=== PATIENT | female | born 1930 | race Caucasian/White ===

== ENCOUNTER 2018-05-13 15:48 | Inpatient (IN) | payer MEDICARE ==
[~2018-05-13] VITALS: Ht 162.6 cm; Wt 68.5 kg
[~2018-05-13 15:48] MED LIST: BISA-42 PO; BUDE10.2 IH; DILT120C80 PO; FAMO-63 PO; FLUO10CA13 PO; HYDR-2758 PO; LOVA40TA2 PO; MULT1TAB52 PO
[2018-05-13] MEDS ORDERED: ONDANSETRON PF 4 MG/2 ML VIAL. IV ONE (17:30)
[2018-05-13] MEDS ORDERED: MORPHINE SULFATE 4 MG/ML VIAL. IV ONE (17:30)
[2018-05-13 17:39] LABS: BILIRUBIN,URINE NEGATIVE (NEG); CLARITY,URINE CLEAR; COLOR,URINE YELLOW; NITRITE,URINE NEGATIVE (NEG); PROTEIN,URINE NEGATIVE (NEG-TRACE); UROBILINOGEN,URINE 0.2 mg/dL (0.2 mg/dL)
[2018-05-13 17:45] LABS: BACTERIA,URINE 0 /HPF (0-FEW); RBC,URINE RARE /HPF (0-2); SQUAMOUS EPITHELIAL CELL,UR OCC /LPF; WBC,URINE 0 /HPF (0-4)
--- NOTE | 2018-05-13 18:17 | PHYS DOC ---
Past Medical History Past Medical History: A-Fib, Anxiety, Depression, High Cholesterol, Other Additional Past Medical Histor: emphysema Past Surgical History: Hip Replacement, Hysterectomy, Other Additional Past Surgical Histo: wrist, heart ablation, right knee replacement Alcohol Use: None Drug Use: None Adult General Chief Complaint Chief Complaint: BACK PAIN OR INJURY HPI HPI Patient is a 87 year old female who presents to the emergency Department today with complaints of continued back pain after being diagnosed with a compression fracture of T12 at [facility] May [id number]. Patient denies any loss of bowel or bladder control, saddle anesthesia, dysuria, increased urinary frequency, dysuria, numbness, tingling, fever, abdominal pain, or chest pain. She states that she lives at home by herself and that when she stands the pain increases and makes her feel weak. She is afraid of falling because of the pain. Pt is currently taking 2 tablets of hydrocodone 5/325 mg at a time for pain relief. She states that the medication only helps relieve her pain to a 9 out of 10 on the pain scale. She states that the pain is constantly a 10 out of 10 on the pain scale. She has a follow up appointment with her PCP Dr. Jimenez next week on 05/18/18. Review of Systems Review of Systems Constitutional: Denies fever or chills [] Respiratory: Denies shortness of breath [] Cardiovascular: Denies chest pain GI: Denies abdominal pain, saddle anesthesia, loss of bowel control, vomiting, or diarrhea [] : Denies increased frequency, dysuria, or hematuria; reports 3 episodes of loss of bladder control while urinating on 05/02/18 denies any episodes since. [] Musculoskeletal: Denies back pain or joint pain [] Integument: Denies rash or skin lesions [] Neurologic: Denies headache, focal weakness or sensory changes [] All other systems were reviewed and found to be within normal limits, except as documented in this note. Current Medications Current Medications Current Medications Medications (Trade) Dose Ordered Sig/Stuart Start Time Stop Time Status Last Admin Dose Admin Morphine Sulfate (Morphine Sulfate) 4 mg 1X ONCE 05/13/18 17:30 05/13/18 17:34 DC Ondansetron HCl (Zofran) 4 mg 1X ONCE 05/13/18 17:30 05/13/18 17:34 DC Allergies Allergies Allergies Coded Allergies Type Severity Reaction Last Updated Verified phenobarbital Allergy Unknown Itching 03/13/14 No Physical Exam Physical Exam Constitutional: Well developed, well nourished, no acute distress, non-toxic appearance. [] HENT: Normocephalic, atraumatic, bilateral external ears normal, nose normal. [] Eyes: conjunctiva normal, no discharge. [] Cardiovascular:Heart rate regular rhythm, no murmur [] Lungs & Thorax: Bilateral breath sounds clear to auscultation [] Abdomen: Bowel sounds normal, soft, no tenderness, no masses, no pulsatile masses. [] Skin: Warm, dry, no erythema, no rash. [] Back: lower thoracic spine tenderness to palpation Extremities: No tenderness, no cyanosis, no clubbing, ROM intact, no edema. [] Neurologic: Alert and oriented X 3, normal motor function, normal sensory function, no focal deficits noted. [] Psychologic: Affect normal, judgement normal, mood normal. [] Current Patient Data Vital Signs Vital Signs Date Time Temp Pulse Resp B/P (MAP) Pulse Ox O2 Delivery O2 Flow Rate FiO2 05/13/18 17:00 98.4 73 18 165/73 (103) 98 Room Air 98.4 Lab Values Laboratory Tests Test 05/13/18 17:00 Urine Collection Type Void Urine Color Yellow Urine Clarity Clear Urine pH 6.0 Urine Specific [place] 1.015 Urine Protein Negative mg/dL (NEG-TRACE) Urine Glucose (UA) Negative mg/dL (NEG) Urine Ketones (Stick) Negative mg/dL (NEG) Urine Blood Negative (NEG) Urine Nitrite Negative (NEG) Urine Bilirubin Negative (NEG) Urine Urobilinogen Dipstick 0.2 mg/dL (0.2 mg/dL) Urine Leukocyte Esterase Negative (NEG) Urine RBC Rare /HPF (0-2) Urine WBC 0 /HPF (0-4) Urine Squamous Epithelial Cells Occ /LPF Urine Renal Epithelial Cells Occ /LPF Urine Bacteria 0 /HPF (0-FEW) EKG EKG [] Radiology/Procedures Radiology/Procedures [] Course & Med Decision Making Course & Med Decision Making Pertinent Labs and Imaging studies reviewed. (See chart for details) IV, CBC, CMP, UA ordered. Pt given 4 mg of zofran and 4 mg of morphine for relief of pain. Plan is to admit patient for pain control and spinal surgery consult. 1800- report to Sunil ESCOBEDO at this time patient care assumed by Sunil. [] Bernard Disclaimer Bernard Disclaimer This electronic medical record was generated, in whole or in part, using a voice recognition dictation system. Departure Departure Referrals: JOE WIN Jr, MD (PCP) CHLOE MONTENEGRO APRN May 13, 2018 18:17
[2018-05-13 18:46] LABS: BASO # 0.1 x10^3/uL (0.0-0.2); BASO % 1 % (0-3); EOS # 0.3 x10^3/uL (0.0-0.7); EOS % 4 % (0-3); HEMATOCRIT 37.9 % (36.0-47.0); HEMOGLOBIN 13.2 g/dL (12.0-15.5); LYMPH % 27 % (24-48); MEAN CORPUSCULAR HEMOGLOBIN 32 pg (25-35); MEAN CORPUSCULAR HGB CONC 35 g/dL (31-37); MEAN CORPUSCULAR VOLUME 91 fL (79-100); MONO # 0.5 x10^3/uL (0.0-1.1); MONO % 7 % (0-9); NEUT # 4.6 x10^3uL (1.8-7.7); NEUT % 61 % (31-73); PLATELET COUNT 402 x10^3/uL (140-400); RED BLOOD COUNT 4.15 x10^6/uL (3.50-5.40); RED CELL DISTRIBUTION WIDTH 14.6 % (11.5-14.5); WHITE BLOOD COUNT 7.5 x10^3/uL (4.0-11.0)
[2018-05-13 18:58] LABS: CALCIUM 9.1 mg/dL (8.5-10.1); CREATININE 0.9 mg/dL (0.6-1.0); GFR 59.5; POTASSIUM 3.6 mmol/L (3.5-5.1)
[2018-05-13 19:04] LABS: ALBUMIN 3.6 g/dL (3.4-5.0); TOTAL BILIRUBIN 0.2 mg/dL (0.2-1.0); TOTAL PROTEIN 7.1 g/dL (6.4-8.2)
[2018-05-13] MEDS ORDERED: fentaNYL PF VIAL 100 MCG/2 ML VIAL ONE (22:46)
[2018-05-13 23:00] VITALS: BP 148/62
[2018-05-13] MEDS ORDERED: fentaNYL PF VIAL 100 MCG/2 ML VIAL IV ONE (23:00)
[2018-05-14] MEDS ORDERED: MORPHINE SULFATE 4 MG/ML VIAL. IV PRN
[2018-05-14] MEDS: oxyCODONE/APAP 5/325 1 TAB TABLET PO PRN ×4 (00:27→16:43)
[2018-05-14 03:00] VITALS: BP 134/63
[2018-05-14] MEDS: MORPHINE IR 15 MG TABLET PO PRN ×2 (03:19→13:53)
[2018-05-14 07:00] VITALS: BP 126/54
--- NOTE | 2018-05-14 10:17 | PDOC1 ---
History and Physical Date of Admission Date of Admission DATE: 05/14/18 TIME: 10:16 Identification/Chief Complaint Chief Complaint CC diagnosed with a compression fracture of T12 at [facility] May [id number]. Patient denies any loss of bowel or bladder control, saddle anesthesia, dysuria, increased urinary frequency, dysuria, numbness, tingling, fever, abdominal pain, or chest pain. states that she lives at home by herself and that when she stands the pain increases and makes her feel weak, is afraid of falling because of the pain., currently taking 2 tablets of hydrocodone 5/325 mg at a time for pain relief. states that the medication only helps relieve her pain to a 9 out of 10 on the pain scale. She states that the pain is constantly a 10 out of 10 on the pain scale Past Medical History Past Medical History Past Medical History Past Medical History: A-Fib, Anxiety, Depression, High Cholesterol, Other Additional Past Medical Histor: emphysema Past Surgical History: Hip Replacement, Hysterectomy, Other Additional Past Surgical Histo: wrist, heart ablation, right knee replacement Alcohol Use: None Drug Use: None FAMILY HX HYPERLIPIDEMIA ENT: No pertinent hx Renal/: No pertinent hx Past Surgical History Past Surgical History: Hysterectomy, Other Family History Family History: High Cholestrol, Hypertension Social History Smoke: No ALCOHOL: none Drugs: None Current Problem List Problem List Problems Medical Problems: (1) Intractable back pain Status: Acute (2) T12 compression fracture Status: Acute Current Medications Current Medications Current Medications Morphine Sulfate (Morphine Sulfate) 4 mg 1X ONCE IV Last administered on at 18:30; Start 05/13/18 at 17:30; Stop 05/13/18 at 17:34; Status DC Ondansetron HCl (Zofran) 4 mg 1X ONCE IV Last administered on 05/13/18at 18:29 ; Start 05/13/18 at 17:30; Stop 05/13/18 at 17:34; Status DC Fentanyl Citrate (Fentanyl 2ml Vial) 100 mcg STK-MED ONCE .ROUTE ; Start at 22:46; Stop 05/13/18 at 22:48; Status DC Fentanyl Citrate (Fentanyl 2ml Vial) 25 mcg 1X ONCE IV Last administered on at 22:54; Start 05/13/18 at 23:00; Stop 05/13/18 at 23:11; Status DC Oxycodone/ Acetaminophen (Percocet 5/325) 2 tab PRN Q4HRS PRN PO PAIN Last administered on 05/14/18at 05:34; Start 05/14/18 at 00:00 Morphine Sulfate (Morphine Sulfate) 4 mg PRN Q4HRS PRN IV SEVERE PAIN Last administered on 05/14/18at 00:28; Start 05/14/18 at 00:00 Morphine Sulfate (Morphine Ir) 15 mg PRN Q4HRS PRN PO PAIN Last administered on 05/14/18at 03:19; Start 05/14/18 at 00:00 Active Scripts Active Reported Diltiazem 24HR Cd (Diltiazem Hcl) 120 Mg Cap.er.24h 120 Mg PO DAILY Dulcolax (Bisacodyl) 5 Mg Tablet.dr 2 Tab PO BID PRN Pepcid (Famotidine) 20 Mg Tablet 1.5 Tab PO DAILY Hydrocodone-Apap 5-325 (Hydrocodone Bit/Acetaminophen) 1 Each Tablet 1-2 Tab PO Q4-6HRS Prozac (Fluoxetine Hcl) 10 Mg Capsule 10 Mg PO DAILY Symbicort 160-4.5 Mcg Inhaler (Budesonide/Formoterol Fumarate) 10.2 Gm Hfa.aer.ad 10.2 Gm IH DAILY Lovastatin 40 Mg Tablet 40 Mg PO HS Allergies Allergies: Coded Allergies: phenobarbital (Unverified Allergy, Unknown, Itching, 03/13/14) HIVES ROS Review of System 14 PT ROS OTHERWISE NEG General: YES: Fatigue PSYCHOLOGICAL ROS: No: Anxiety, Behavioral Disorder, Concentration difficultie , Decreased libido, Depression, Disorientation, Hallucinations, Hostility, Irritablity, Memory difficulties, Mood Swings, Obsessive thoughts, Physical abuse, Sexual abuse, Sleep disturbances, Suicidal ideation, Other Eyes: No Blurry vision, No Decreased vision, No Double vision, No Dry eyes, No Excessive tearing, No Eye Pain, No Itchy Eyes, No Loss of vision, No Photophobia , No Scotomata, No Uses contacts, No Uses glasses, No Other Hematological and Lymphatic: No: Bleeding Problems, Blood Clots, Blood Transfusions, Brusing, Night Sweats, Pallor, Swollen Lymph Nodes, Other ENDOCRINE: No: Breast Changes, Galactorrhea, Hair Pattern Changes, Hot Flashes , Malaise/lethargy, Mood Swings, Palpitations, Polydipsia/polyuria, Skin Changes , Temperature Intolerance, Unexpected Weight Changes, Other Respiratory: No: Cough, Hemoptysis, Orthopnea, Pleuritic Pain, Shortness of breath, SOB with excertion, Sputum Changes, Stridor, Tachypnea, Wheezing, Other Cardiovascular: No Chest Pain, No Palpitations, No Orthopnea, No Paroxysmal Noc. Dyspnea, No Edema, No Lt Headedness, No Other Musculoskeletal: Yes Gait Disturbance, Yes Joint Stiffness, Yes Pain In: (LOW BACK, MID BACK) Neurological: Yes Gait Disturbance Physical Exam General: Alert, Oriented X3, Cooperative, moderate distress HEENT: Atraumatic, PERRLA, EOMI Lungs: Clear to auscultation Heart: S1S2, RRR Breasts: Not examined Abdomen: Normal bowel sounds, Soft Rectal Exam: not examined PELVIC: Examination not indicated Extremities: No clubbing, No cyanosis Neuro: Normal speech, Cranial nerves 3-12 NL Psych/Mental Status: Mental status NL, Mood NL Vitals Vitals Vital Signs Date Time Temp Pulse Resp B/P (MAP) Pulse Ox O2 Delivery O2 Flow Rate FiO2 05/14/18 08:00 Room Air 05/14/18 07:00 98.7 68 16 126/54 (78) 94 98.7 Labs Labs Laboratory Tests Test 05/13/18 17:00 05/13/18 18:30 Urine Collection Type Void Urine Color Yellow Urine Clarity Clear Urine pH 6.0 Urine Specific [place] 1.015 Urine Protein Negative mg/dL (NEG-TRACE) Urine Glucose (UA) Negative mg/dL (NEG) Urine Ketones (Stick) Negative mg/dL (NEG) Urine Blood Negative (NEG) Urine Nitrite Negative (NEG) Urine Bilirubin Negative (NEG) Urine Urobilinogen Dipstick 0.2 mg/dL (0.2 mg/dL) Urine Leukocyte Esterase Negative (NEG) Urine RBC Rare /HPF (0-2) Urine WBC 0 /HPF (0-4) Urine Squamous Epithelial Cells Occ /LPF Urine Renal Epithelial Cells Occ /LPF Urine Bacteria 0 /HPF (0-FEW) White Blood Count 7.5 x10^3/uL (4.0-11.0) Red Blood Count 4.15 x10^6/uL (3.50-5.40) Hemoglobin 13.2 g/dL (12.0-15.5) Hematocrit 37.9 % (36.0-47.0) Mean Corpuscular Volume 91 fL (79-100) Mean Corpuscular Hemoglobin 32 pg (25-35) Mean Corpuscular Hemoglobin Concent 35 g/dL (31-37) Red Cell Distribution Width 14.6 % (11.5-14.5) Platelet Count 402 x10^3/uL (140-400) Neutrophils (%) (Auto) 61 % (31-73) Lymphocytes (%) (Auto) 27 % (24-48) Monocytes (%) (Auto) 7 % (0-9) Eosinophils (%) (Auto) 4 % (0-3) Basophils (%) (Auto) 1 % (0-3) Neutrophils # (Auto) 4.6 x10^3uL (1.8-7.7) Lymphocytes # (Auto) 2.0 x10^3/uL (1.0-4.8) Monocytes # (Auto) 0.5 x10^3/uL (0.0-1.1) Eosinophils # (Auto) 0.3 x10^3/uL (0.0-0.7) Basophils # (Auto) 0.1 x10^3/uL (0.0-0.2) Sodium Level 134 mmol/L (136-145) Potassium Level 3.6 mmol/L (3.5-5.1) Chloride Level 98 mmol/L (98-107) Carbon Dioxide Level 28 mmol/L (21-32) Anion Gap 8 (6-14) Blood Urea Nitrogen 10 mg/dL (7-20) Creatinine 0.9 mg/dL (0.6-1.0) Estimated GFR (Cockcroft-Gault) 59.5 BUN/Creatinine Ratio 11 (6-20) Glucose Level 96 mg/dL (70-99) Calcium Level 9.1 mg/dL (8.5-10.1) Total Bilirubin 0.2 mg/dL (0.2-1.0) Aspartate Amino Transf (AST/SGOT) 13 U/L (15-37) Alanine Aminotransferase (ALT/SGPT) 17 U/L (14-59) Alkaline Phosphatase 66 U/L (46-116) Total Protein 7.1 g/dL (6.4-8.2) Albumin 3.6 g/dL (3.4-5.0) Albumin/Globulin Ratio 1.0 (1.0-1.7) Laboratory Tests Test 05/13/18 17:00 05/13/18 18:30 Urine Collection Type Void Urine Color Yellow Urine Clarity Clear Urine pH 6.0 Urine Specific [place] 1.015 Urine Protein Negative mg/dL (NEG-TRACE) Urine Glucose (UA) Negative mg/dL (NEG) Urine Ketones (Stick) Negative mg/dL (NEG) Urine Blood Negative (NEG) Urine Nitrite Negative (NEG) Urine Bilirubin Negative (NEG) Urine Urobilinogen Dipstick 0.2 mg/dL (0.2 mg/dL) Urine Leukocyte Esterase Negative (NEG) Urine RBC Rare /HPF (0-2) Urine WBC 0 /HPF (0-4) Urine Squamous Epithelial Cells Occ /LPF Urine Renal Epithelial Cells Occ /LPF Urine Bacteria 0 /HPF (0-FEW) White Blood Count 7.5 x10^3/uL (4.0-11.0) Red Blood Count 4.15 x10^6/uL (3.50-5.40) Hemoglobin 13.2 g/dL (12.0-15.5) Hematocrit 37.9 % (36.0-47.0) Mean Corpuscular Volume 91 fL (79-100) Mean Corpuscular Hemoglobin 32 pg (25-35) Mean Corpuscular Hemoglobin Concent 35 g/dL (31-37) Red Cell Distribution Width 14.6 % (11.5-14.5) Platelet Count 402 x10^3/uL (140-400) Neutrophils (%) (Auto) 61 % (31-73) Lymphocytes (%) (Auto) 27 % (24-48) Monocytes (%) (Auto) 7 % (0-9) Eosinophils (%) (Auto) 4 % (0-3) Basophils (%) (Auto) 1 % (0-3) Neutrophils # (Auto) 4.6 x10^3uL (1.8-7.7) Lymphocytes # (Auto) 2.0 x10^3/uL (1.0-4.8) Monocytes # (Auto) 0.5 x10^3/uL (0.0-1.1) Eosinophils # (Auto) 0.3 x10^3/uL (0.0-0.7) Basophils # (Auto) 0.1 x10^3/uL (0.0-0.2) Sodium Level 134 mmol/L (136-145) Potassium Level 3.6 mmol/L (3.5-5.1) Chloride Level 98 mmol/L (98-107) Carbon Dioxide Level 28 mmol/L (21-32) Anion Gap 8 (6-14) Blood Urea Nitrogen 10 mg/dL (7-20) Creatinine 0.9 mg/dL (0.6-1.0) Estimated GFR (Cockcroft-Gault) 59.5 BUN/Creatinine Ratio 11 (6-20) Glucose Level 96 mg/dL (70-99) Calcium Level 9.1 mg/dL (8.5-10.1) Total Bilirubin 0.2 mg/dL (0.2-1.0) Aspartate Amino Transf (AST/SGOT) 13 U/L (15-37) Alanine Aminotransferase (ALT/SGPT) 17 U/L (14-59) Alkaline Phosphatase 66 U/L (46-116) Total Protein 7.1 g/dL (6.4-8.2) Albumin 3.6 g/dL (3.4-5.0) Albumin/Globulin Ratio 1.0 (1.0-1.7) VTE Prophylaxis Ordered VTE Prophylaxis Devices: Yes VTE Pharmacological Prophylaxi: Yes Assessment/Plan Assessment/Plan IMPRESSION 1. INTRACTABLE BACK PAIN 2. COPD 3, HYPERLIPIDEMIA 4. T10 COMPRESSION FX 5. GAIT INSTABILITY PLAN CONSULT DR MERAZ MRI L/S T/S CON HOME MEDS PT/OT SQ LOVENOX DVT PROPHYLAXIS CAMELIA ROSE MD May 14, 2018 10:17
[2018-05-14 11:00] VITALS: BP 141/68
[2018-05-14] MEDS ORDERED: CALCIUM CARBONATE 500 MG TAB.CHEW PO PRN (14:00)
[2018-05-14] MEDS: ALBUTEROL SULFATE 2.5 MG/3 ML NEBU. NEB SCH ×2 (14:30→20:01)
[2018-05-14 15:00] VITALS: BP 126/50
[2018-05-14] MEDS: ENOXAPARIN 40 MG/0.4 ML SYRINGE. SQ SCH (16:00)
--- NOTE | 2018-05-14 16:35 | RAD ---
MRI Thoracic Spine without contrast History: Back pain Technique: Multiplanar, multi sequential noncontrast MR imaging was performed of the thoracic spine. Contrast: None Comparison: None Findings: There is a recent T12 compression fracture with edema signified by STIR hyperintense and T1 hypointense signal. There is osseous retropulsion superiorly which contributes to overall mild spinal stenosis with a greater degree of left lateral recess stenosis. There is no other edema suggestive of recent compression fracture. There is old mild superior endplate concavity of T6 and T5. There is minimal grade 1 anterior spondylolisthesis at C7-T1 and T1-T2. There is moderate to severe degenerative disc disease greater on the left at T8-9 with associated degenerative endplate change, other variable degenerative disc disease. Thoracic cord caliber is within normal limits without significant focal signal abnormality. Some heterogeneous signal posterior to the thoracic cord is most commonly due to CSF pulsation artifact. There is mild inferior thoracic dextroscoliosis. There is multilevel buckling of the ligamentum flavum. There is a negligible posterior protrusion at T8-T9. Facet degenerative change contributes to mild narrowing of the right T4-T5 neural foramen, likely mild narrowing on the left such as at T7-8 through T9-T10. Impression: 1. There is a recent T12 compression fracture with associated edema. There is osseous retropulsion superiorly which contributes to mild spinal stenosis with a greater degree of left lateral recess stenosis. 2. There is multilevel degenerative disc disease greatest at T8-T9. Electronically signed by: Jimmy Will MD (05/14/2018 4:32 PM) [id number]
[2018-05-14] MEDS: BISACODYL 5 MG TABLET.DR. PO PRN (16:41)
[2018-05-14] MEDS: FAMOTIDINE 20 MG TABLET. PO SCH (16:41)
--- NOTE | 2018-05-14 16:41 | RAD ---
MRI Lumbar Spine without contrast History: Back pain Technique: Multiplanar, multi sequential noncontrast MR imaging was performed of the lumbar spine. Contrast: None Comparison: None Findings: As described for thoracic spine MRI performed at the same time, there is recent T12 compression fracture with osseous retropulsion superiorly contributing to mild spinal stenosis. There is no edema suggestive of recent lumbar spine compression fracture. There is negligible anterior spondylolisthesis at L4-5 and minimal posterior subluxation L2 relative to L3 and L1 relative to L2, also negligible anterior spondylolisthesis at T12-L1. Conus terminates at the superior aspect of L2. There is more advanced degenerative disc disease at L2-3 with associated degenerative endplate change, also fairly severe narrowing of the L5-S1 intervertebral disc space although likely in part on a developmental basis. There is mild to moderate degenerative disc disease at L4-5 and L1-2. There is mild lumbar levoscoliosis. L1-L2: There is minimal disc osteophyte complex. Spinal canal and neural foramina are adequate. There is minimal buckling of the ligamentum flavum. L2-L3: There is minimal disc osteophyte complex. Spinal canal is adequate. Neural foramina are adequate. There is mild facet degenerative change and buckling of the ligamentum flavum. L3-L4: There is mild buckling of the ligamentum flavum. There is negligible disc osteophyte complex. Spinal canal is adequate. Neural foramina are overall adequate. L4-L5: There is mild buckling of the ligamentum flavum and facet degenerative change. There is negligible bulge. Neural foramina and spinal canal are overall adequate. L5-S1: There is minimal facet degenerative change. Spinal canal is adequate. There is minimal disc osteophyte complex in the inferior left neural foramen. Neural foramina are overall adequate. Impression: 1. As described for thoracic spine exam, there is recent T12 compression fracture with osseous retropulsion superiorly contributing to mild spinal stenosis. There is no evidence of recent lumbar spine compression fracture. 2. There is more advanced degenerative disc disease L2-3, to lesser degree at other levels. There is multilevel mild abnormal alignment as stated, multilevel facet degenerative change. There is no significant lumbar spinal stenosis or neural foramina compromise. Electronically signed by: Jimmy Will MD (05/14/2018 4:37 PM) [email or web address]
[2018-05-14] MEDS: FLUoxetine HCL 10 MG CAPSULE PO SCH (16:42)
[2018-05-14 19:30] VITALS: BP 112/59
[2018-05-14] MEDS: BUDESONIDE 0.5 MG/2 ML NEBU. NEB SCH (20:01)
[2018-05-14] MEDS: ATORVASTATIN CALCIUM 10 MG TABLET. PO SCH (20:10)
--- NOTE | 2018-05-14 21:26 | CONS ---
DATE OF CONSULTATION: 05/14/2018 ATTENDING PHYSICIAN: Heather Waddell M.D. REQUESTING PHYSICIAN: The patient was seen at the request of Dr. Pineda for rehab evaluation. HISTORY OF PRESENT ILLNESS: This is an 87-year-old right-handed female, a patient of Dr. Lavelle Arriaga. The patient had right total knee arthroplasty done at [facility] about 3 weeks ago. She has been taking care of herself. She lives alone. The patient started having some back pain, was evaluated at [facility] on 05/04/2018, was told that she had a T4 vertebral body compression fracture. She was discharged to home with hydrocodone. She felt it is too strong. The patient admits continued back pain. The patient was admitted for further evaluation and treatment through the Emergency Room. PAST MEDICAL HISTORY: The patient with known atrial fibrillation, anxiety, depression, hypercholesterolemia, emphysema, status post hip replacement, hysterectomy, wrist surgery, heart ablation and right total knee arthroplasty about 3 weeks ago. FAMILY HISTORY: Hyperlipidemia. ALLERGIES: She is known allergic to PHENOBARBITAL. The patient denies any radiation of pain to the extremities or any trouble with her bladder control, but she admits constipation. PHYSICAL EXAMINATION: Today revealed an elderly female. She is alert, oriented to time, place, person and circumstance and follows commands appropriately, moves all 4 extremities voluntarily where she had 4+/5 grade muscle strength. Deep tendon reflexes are decreased overall with absent ankle jerks. She had equal perception of touch and pinprick sensation bilaterally. She had tenderness to palpation over lower thoracic spine and adjoining paraspinal muscles, more so on the left side. Straight leg raising test is negative bilaterally. She is not using proper body mechanics during mobility, but remains independent with her mobility and she had healed right knee postoperative scar. She had a crepitus on range of motion of left knee joint with mild knee joint effusion. She had pain free range of motion on both hip joints. She requires some supervision with transfers and with abdominal binder as thoracolumbar support. She got up and walked using a roller walker without much discomfort. 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 The patient with known atrial fibrillation, anxiety, depression, hypercholesterolemia, emphysema, status post heart ablation. RECOMMENDATIONS: Agree with the plan for physical therapy and occupational therapy to work with her in proper body mechanics to consider T12 kyphoplasty if the pain is really interfering with her mobility. At the present time, she is not having that much significant discomfort. Dr. Pineda, I appreciate asking me to participate in the care of this interesting patient. I will be glad to follow her with you as needed for her rehabilitation. JAMAR MERAZ MD DR: LARRY/romana JOB#: [id number] / [id number]
[2018-05-14 23:18] VITALS: BP 134/69
[2018-05-15] VITALS (15 sets, daily range): BP systolic 101–144; BP diastolic 44–74
[2018-05-15] MEDS: ALBUTEROL SULFATE 2.5 MG/3 ML NEBU. NEB SCH ×4 (01:31→19:51)
[2018-05-15] MEDS: oxyCODONE/APAP 5/325 1 TAB TABLET PO PRN ×5 (03:12→20:49)
[2018-05-15 04:53] LABS: BASO % 1 % (0-3); EOS # 0.3 x10^3/uL (0.0-0.7); EOS % 4 % (0-3); HEMATOCRIT 34.2 % (36.0-47.0); HEMOGLOBIN 11.8 g/dL (12.0-15.5); LYMPH # 1.8 x10^3/uL (1.0-4.8); LYMPH % 29 % (24-48); MEAN CORPUSCULAR HEMOGLOBIN 32 pg (25-35); MEAN CORPUSCULAR HGB CONC 35 g/dL (31-37); MEAN CORPUSCULAR VOLUME 92 fL (79-100); MONO # 0.5 x10^3/uL (0.0-1.1); MONO % 9 % (0-9); NEUT # 3.6 x10^3uL (1.8-7.7); NEUT % 58 % (31-73); PLATELET COUNT 318 x10^3/uL (140-400); RED BLOOD COUNT 3.72 x10^6/uL (3.50-5.40); RED CELL DISTRIBUTION WIDTH 14.7 % (11.5-14.5); WHITE BLOOD COUNT 6.2 x10^3/uL (4.0-11.0)
[2018-05-15 05:49] LABS: CALCIUM 8.6 mg/dL (8.5-10.1); CREATININE 0.9 mg/dL (0.6-1.0); GFR 59.5; POTASSIUM 4.2 mmol/L (3.5-5.1)
[2018-05-15] MEDS: BUDESONIDE 0.5 MG/2 ML NEBU. NEB SCH ×2 (07:08→19:52)
[2018-05-15] MEDS: FAMOTIDINE 20 MG TABLET. PO SCH (09:00)
[2018-05-15] MEDS ORDERED: NON FORMULARY ITEM (Budesonide/Formoterol Fumarate (Symbicort 160-4.5 Mcg Inhaler) 10.2 GM IH SCH (09:00)
[2018-05-15] MEDS: FLUoxetine HCL 10 MG CAPSULE PO SCH (09:00)
[2018-05-15] MEDS ORDERED: oxyCODONE/APAP 5/325 1 TAB TABLET PO PRN (12:00)
[2018-05-15] MEDS ORDERED: LACTULOSE 20 GM/30 ML SOLUTION. PO PRN (12:00)
[2018-05-15] MEDS ORDERED: MAGNESIUM HYDROXIDE 2,400 MG/30 ML ORAL.SUSP. PO PRN (12:00)
--- NOTE | 2018-05-15 13:09 | PDOC ---
PROGRESS NOTES Subjective Subjective She admits continued low back pain. Objective Objective Vital Signs Date Time Temp Pulse Resp B/P (MAP) Pulse Ox O2 Delivery O2 Flow Rate FiO2 05/15/18 11:00 97.7 75 16 120/54 (76) 98 Room Air 97.7 Intake and Output 05/15/18 07:00 Intake Total 1620 ml Balance 1620 ml Intake Oral 1620 ml # Voids 8 Physical Exam Physical Exam She is sitting in bedside chair and does not seem to be in any significant distress. Assessment Assessment Problems Medical Problems: (1) Intractable back pain Status: Acute (2) T12 compression fracture Status: Acute Plan Plan of Care To proceed with T12 kyphoplasty and home with home health follow up when medically stable. Comment Review of Relevant I have reviewed the following items jocelyn (where applicable) has been applied. Labs Laboratory Tests Test 05/13/18 17:00 05/13/18 18:30 05/15/18 04:15 Urine Collection Type Void Urine Color Yellow Urine Clarity Clear Urine pH 6.0 Urine Specific [place] 1.015 Urine Protein Negative mg/dL (NEG-TRACE) Urine Glucose (UA) Negative mg/dL (NEG) Urine Ketones (Stick) Negative mg/dL (NEG) Urine Blood Negative (NEG) Urine Nitrite Negative (NEG) Urine Bilirubin Negative (NEG) Urine Urobilinogen Dipstick 0.2 mg/dL (0.2 mg/dL) Urine Leukocyte Esterase Negative (NEG) Urine RBC Rare /HPF (0-2) Urine WBC 0 /HPF (0-4) Urine Squamous Epithelial Cells Occ /LPF Urine Renal Epithelial Cells Occ /LPF Urine Bacteria 0 /HPF (0-FEW) White Blood Count 7.5 x10^3/uL (4.0-11.0) 6.2 x10^3/uL (4.0-11.0) Red Blood Count 4.15 x10^6/uL (3.50-5.40) 3.72 x10^6/uL (3.50-5.40) Hemoglobin 13.2 g/dL (12.0-15.5) 11.8 g/dL (12.0-15.5) Hematocrit 37.9 % (36.0-47.0) 34.2 % (36.0-47.0) Mean Corpuscular Volume 91 fL (79-100) 92 fL (79-100) Mean Corpuscular Hemoglobin 32 pg (25-35) 32 pg (25-35) Mean Corpuscular Hemoglobin Concent 35 g/dL (31-37) 35 g/dL (31-37) Red Cell Distribution Width 14.6 % (11.5-14.5) 14.7 % (11.5-14.5) Platelet Count 402 x10^3/uL (140-400) 318 x10^3/uL (140-400) Neutrophils (%) (Auto) 61 % (31-73) 58 % (31-73) Lymphocytes (%) (Auto) 27 % (24-48) 29 % (24-48) Monocytes (%) (Auto) 7 % (0-9) 9 % (0-9) Eosinophils (%) (Auto) 4 % (0-3) 4 % (0-3) Basophils (%) (Auto) 1 % (0-3) 1 % (0-3) Neutrophils # (Auto) 4.6 x10^3uL (1.8-7.7) 3.6 x10^3uL (1.8-7.7) Lymphocytes # (Auto) 2.0 x10^3/uL (1.0-4.8) 1.8 x10^3/uL (1.0-4.8) Monocytes # (Auto) 0.5 x10^3/uL (0.0-1.1) 0.5 x10^3/uL (0.0-1.1) Eosinophils # (Auto) 0.3 x10^3/uL (0.0-0.7) 0.3 x10^3/uL (0.0-0.7) Basophils # (Auto) 0.1 x10^3/uL (0.0-0.2) 0.0 x10^3/uL (0.0-0.2) Sodium Level 134 mmol/L (136-145) 139 mmol/L (136-145) Potassium Level 3.6 mmol/L (3.5-5.1) 4.2 mmol/L (3.5-5.1) Chloride Level 98 mmol/L (98-107) 102 mmol/L (98-107) Carbon Dioxide Level 28 mmol/L (21-32) 29 mmol/L (21-32) Anion Gap 8 (6-14) 8 (6-14) Blood Urea Nitrogen 10 mg/dL (7-20) 11 mg/dL (7-20) Creatinine 0.9 mg/dL (0.6-1.0) 0.9 mg/dL (0.6-1.0) Estimated GFR (Cockcroft-Gault) 59.5 59.5 BUN/Creatinine Ratio 11 (6-20) Glucose Level 96 mg/dL (70-99) 99 mg/dL (70-99) Calcium Level 9.1 mg/dL (8.5-10.1) 8.6 mg/dL (8.5-10.1) Total Bilirubin 0.2 mg/dL (0.2-1.0) Aspartate Amino Transf (AST/SGOT) 13 U/L (15-37) Alanine Aminotransferase (ALT/SGPT) 17 U/L (14-59) Alkaline Phosphatase 66 U/L (46-116) Total Protein 7.1 g/dL (6.4-8.2) Albumin 3.6 g/dL (3.4-5.0) Albumin/Globulin Ratio 1.0 (1.0-1.7) Laboratory Tests Test 05/15/18 04:15 White Blood Count 6.2 x10^3/uL (4.0-11.0) Red Blood Count 3.72 x10^6/uL (3.50-5.40) Hemoglobin 11.8 g/dL (12.0-15.5) Hematocrit 34.2 % (36.0-47.0) Mean Corpuscular Volume 92 fL (79-100) Mean Corpuscular Hemoglobin 32 pg (25-35) Mean Corpuscular Hemoglobin Concent 35 g/dL (31-37) Red Cell Distribution Width 14.7 % (11.5-14.5) Platelet Count 318 x10^3/uL (140-400) Neutrophils (%) (Auto) 58 % (31-73) Lymphocytes (%) (Auto) 29 % (24-48) Monocytes (%) (Auto) 9 % (0-9) Eosinophils (%) (Auto) 4 % (0-3) Basophils (%) (Auto) 1 % (0-3) Neutrophils # (Auto) 3.6 x10^3uL (1.8-7.7) Lymphocytes # (Auto) 1.8 x10^3/uL (1.0-4.8) Monocytes # (Auto) 0.5 x10^3/uL (0.0-1.1) Eosinophils # (Auto) 0.3 x10^3/uL (0.0-0.7) Basophils # (Auto) 0.0 x10^3/uL (0.0-0.2) Sodium Level 139 mmol/L (136-145) Potassium Level 4.2 mmol/L (3.5-5.1) Chloride Level 102 mmol/L (98-107) Carbon Dioxide Level 29 mmol/L (21-32) Anion Gap 8 (6-14) Blood Urea Nitrogen 11 mg/dL (7-20) Creatinine 0.9 mg/dL (0.6-1.0) Estimated GFR (Cockcroft-Gault) 59.5 Glucose Level 99 mg/dL (70-99) Calcium Level 8.6 mg/dL (8.5-10.1) Medications Current Medications Morphine Sulfate (Morphine Sulfate) 4 mg 1X ONCE IV Last administered on at 18:30; Start 05/13/18 at 17:30; Stop 05/13/18 at 17:34; Status DC Ondansetron HCl (Zofran) 4 mg 1X ONCE IV Last administered on 05/13/18at 18:29 ; Start 05/13/18 at 17:30; Stop 05/13/18 at 17:34; Status DC Fentanyl Citrate (Fentanyl 2ml Vial) 100 mcg [facility]-MED ONCE .ROUTE ; Start at 22:46; Stop 05/13/18 at 22:48; Status DC Fentanyl Citrate (Fentanyl 2ml Vial) 25 mcg 1X ONCE IV Last administered on at 22:54; Start 05/13/18 at 23:00; Stop 05/13/18 at 23:11; Status DC Oxycodone/ Acetaminophen (Percocet 5/325) 2 tab PRN Q4HRS PRN PO MODERATE PAIN Last administered on 05/15/18at 07:57; Start 05/14/18 at 00:00 Morphine Sulfate (Morphine Sulfate) 4 mg PRN Q4HRS PRN IV SEVERE PAIN Last administered on 05/14/18at 00:28; Start 05/14/18 at 00:00 Morphine Sulfate (Morphine Ir) 15 mg PRN Q4HRS PRN PO SEVERE PAIN Last administered on 05/14/18at 13:53; Start 05/14/18 at 00:00 Calcium Carbonate/ Glycine (Tums) 500 mg PRN AFTMEALHC PRN PO INDIGESTION; Start 05/14/18 at 14:00 Bisacodyl (Dulcolax Tab) 10 mg PRN BID PRN PO CONSTIPATION Last administered on 05/14/18at 16:41; Start 05/14/18 at 14:15 Diltiazem HCl (Cardizem 24hr Cd) 120 mg DAILY PO Last administered on at 16:42; Start 05/14/18 at 15:00 Famotidine (Pepcid) 30 mg DAILY PO Last administered on 05/14/18at 16:41; Start 05/14/18 at 15:00 Fluoxetine HCl (PROzac) 10 mg DAILY PO Last administered on 05/14/18at 16:42; Start 05/14/18 at 15:00 Non-Formulary Medication (Budesonide/ Formoterol Fumarate (Symbicort 160-4.5 Mcg Inhaler)) 10.2 gm DAILY IH ; Start 05/15/18 at 09:00; Status UNV Atorvastatin Calcium (Lipitor) 10 mg QHS PO ; Start 05/14/18 at 21:00 Albuterol Sulfate (Ventolin Neb Soln) 2.5 mg Q6HRS NEB Last administered on at 07:07; Start 05/14/18 at 14:30 Budesonide (Pulmicort) 0.5 mg RTBID NEB Last administered on 05/15/18at 07:08; Start 05/14/18 at 20:00 Enoxaparin Sodium (Lovenox 40mg Syringe) 40 mg Q24H SQ ; Start 05/14/18 at 16:00 Senna/Docusate Sodium (Senna Plus) 1 tab BID PO ; Start 05/15/18 at 21:00 Docusate Sodium (Colace) 100 mg BID PO ; Start 05/15/18 at 21:00 Magnesium Hydroxide (Milk Of Magnesia) 2,400 mg PRN Q12HR PRN PO CONSTIPATION; Start 05/15/18 at 12:00 Lactulose (Lactulose) 20 gm PRN Q12HR PRN PO CONSTIPATION; Start 05/15/18 at 12 :00 Oxycodone/ Acetaminophen (Percocet 5/325) 1 tab PRN Q4HRS PRN PO PAIN; Start at 12:00 Active Scripts Active Reported Dulcolax (Bisacodyl) 5 Mg Tablet.dr 2 Tab PO BID PRN Pepcid (Famotidine) 20 Mg Tablet 1.5 Tab PO DAILY Hydrocodone-Apap 5-325 (Hydrocodone Bit/Acetaminophen) 1 Each Tablet 1-2 Tab PO Q4-6HRS Prozac (Fluoxetine Hcl) 10 Mg Capsule 10 Mg PO DAILY Symbicort 160-4.5 Mcg Inhaler (Budesonide/Formoterol Fumarate) 10.2 Gm Hfa.aer.ad 10.2 Gm IH DAILY Vitals/I & O Vital Sign - Last 24 Hours 05/14/18 05/14/18 05/14/18 05/14/18 13:53 14:53 15:00 16:42 Temp 98.2 98.2 Pulse 79 74 Resp 16 B/P (MAP) 126/50 (75) 141/68 Pulse Ox 93 O2 Delivery Room Air Room Air Room Air 05/14/18 05/14/18 05/14/18 05/14/18 16:43 19:30 20:00 20:01 Temp 97.6 97.6 Pulse 76 Resp 18 B/P (MAP) 112/59 (76) Pulse Ox 96 94 O2 Delivery Room Air Room Air Room Air Room Air 05/14/18 05/15/18 05/15/18 05/15/18 23:18 01:29 03:12 03:22 Temp 97.9 98.2 97.9 98.2 Pulse 73 69 Resp 18 18 B/P (MAP) 134/69 (90) 129/58 (81) Pulse Ox 97 93 O2 Delivery Room Air Room Air Room Air Room Air 05/15/18 05/15/18 05/15/18 05/15/18 07:00 07:08 07:50 07:57 Temp 97.5 97.5 Pulse 83 Resp 16 B/P (MAP) 129/52 (77) Pulse Ox 95 89 89 O2 Delivery Room Air Room Air Room Air Room Air 05/15/18 05/15/18 09:00 11:00 Temp 97.7 97.7 Pulse 75 Resp 16 B/P (MAP) 120/54 (76) Pulse Ox 89 98 O2 Delivery Room Air Room Air Intake and Output 05/14/18 05/14/18 05/15/18 15:00 23:00 07:00 Intake Total 180 ml 1200 ml 240 ml Balance 180 ml 1200 ml 240 ml JAMAR MERAZ MD May 15, 2018 13:09
[2018-05-15] MEDS ORDERED: fentaNYL PF VIAL 100 MCG/2 ML VIAL ONE (14:02)
[2018-05-15] MEDS ORDERED: MIDAZOLAM HCL/PF 2 MG/2 ML VIAL. ONE (14:02)
[2018-05-15] MEDS ORDERED: LIDOCAINE WITH 8.4% SOD BICARB 3 ML DISP.SYRIN. ONE ×2 (14:10→14:59)
[2018-05-15] MEDS ORDERED: IOHEXOL 240 MG/ML 50ML VIAL. ONE (14:11)
--- NOTE | 2018-05-15 14:40 | PDOC ---
PROGRESS NOTES Chief Complaint Chief Complaint lower back pain with compressive t12 fx pafib anxiety depression. HLD constipation copd stable plan: fu with Dr. Valdez may need kypho add percocet for pain control add stool softner History of Present Illness History of Present Illness can walk, but severe lower back pain, + constipation, no incontinence was in [facility] before for the lower back pain, no intervention Vitals Vitals Vital Signs Date Time Temp Pulse Resp B/P (MAP) Pulse Ox O2 Delivery O2 Flow Rate FiO2 05/15/18 14:01 98 Room Air 05/15/18 11:00 97.7 75 16 120/54 (76) 97.7 Physical Exam Physical Exam lower back tenderness General: Alert, Oriented X3, Cooperative, moderate distress Heart: Regular rate, Normal S1 Lungs: Clear Abdomen: Normal bowel sounds, Soft Extremities: No clubbing, No cyanosis Labs LABS Laboratory Tests Test 05/15/18 04:15 05/15/18 13:15 White Blood Count 6.2 x10^3/uL (4.0-11.0) Red Blood Count 3.72 x10^6/uL (3.50-5.40) Hemoglobin 11.8 g/dL (12.0-15.5) Hematocrit 34.2 % (36.0-47.0) Mean Corpuscular Volume 92 fL (79-100) Mean Corpuscular Hemoglobin 32 pg (25-35) Mean Corpuscular Hemoglobin Concent 35 g/dL (31-37) Red Cell Distribution Width 14.7 % (11.5-14.5) Platelet Count 318 x10^3/uL (140-400) Neutrophils (%) (Auto) 58 % (31-73) Lymphocytes (%) (Auto) 29 % (24-48) Monocytes (%) (Auto) 9 % (0-9) Eosinophils (%) (Auto) 4 % (0-3) Basophils (%) (Auto) 1 % (0-3) Neutrophils # (Auto) 3.6 x10^3uL (1.8-7.7) Lymphocytes # (Auto) 1.8 x10^3/uL (1.0-4.8) Monocytes # (Auto) 0.5 x10^3/uL (0.0-1.1) Eosinophils # (Auto) 0.3 x10^3/uL (0.0-0.7) Basophils # (Auto) 0.0 x10^3/uL (0.0-0.2) Sodium Level 139 mmol/L (136-145) Potassium Level 4.2 mmol/L (3.5-5.1) Chloride Level 102 mmol/L (98-107) Carbon Dioxide Level 29 mmol/L (21-32) Anion Gap 8 (6-14) Blood Urea Nitrogen 11 mg/dL (7-20) Creatinine 0.9 mg/dL (0.6-1.0) Estimated GFR (Cockcroft-Gault) 59.5 Glucose Level 99 mg/dL (70-99) Calcium Level 8.6 mg/dL (8.5-10.1) Prothrombin Time 13.0 SEC (11.7-14.0) Prothromb Time International Ratio 1.0 (0.8-1.1) Assessment and Plan Assessmemt and Plan Problems Medical Problems: (1) Intractable back pain Status: Acute (2) T12 compression fracture Status: Acute Comment Review of Relevant I have reviewed the following items jocelyn (where applicable) has been applied. Labs Laboratory Tests Test 05/13/18 17:00 05/13/18 18:30 05/15/18 04:15 05/15/18 13:15 Urine Collection Type Void Urine Color Yellow Urine Clarity Clear Urine pH 6.0 Urine Specific [place] 1.015 Urine Protein Negative mg/dL (NEG-TRACE) Urine Glucose (UA) Negative mg/dL (NEG) Urine Ketones (Stick) Negative mg/dL (NEG) Urine Blood Negative (NEG) Urine Nitrite Negative (NEG) Urine Bilirubin Negative (NEG) Urine Urobilinogen Dipstick 0.2 mg/dL (0.2 mg/dL) Urine Leukocyte Esterase Negative (NEG) Urine RBC Rare /HPF (0-2) Urine WBC 0 /HPF (0-4) Urine Squamous Epithelial Cells Occ /LPF Urine Renal Epithelial Cells Occ /LPF Urine Bacteria 0 /HPF (0-FEW) White Blood Count 7.5 x10^3/uL (4.0-11.0) 6.2 x10^3/uL (4.0-11.0) Red Blood Count 4.15 x10^6/uL (3.50-5.40) 3.72 x10^6/uL (3.50-5.40) Hemoglobin 13.2 g/dL (12.0-15.5) 11.8 g/dL (12.0-15.5) Hematocrit 37.9 % (36.0-47.0) 34.2 % (36.0-47.0) Mean Corpuscular Volume 91 fL (79-100) 92 fL (79-100) Mean Corpuscular Hemoglobin 32 pg (25-35) 32 pg (25-35) Mean Corpuscular Hemoglobin Concent 35 g/dL (31-37) 35 g/dL (31-37) Red Cell Distribution Width 14.6 % (11.5-14.5) 14.7 % (11.5-14.5) Platelet Count 402 x10^3/uL (140-400) 318 x10^3/uL (140-400) Neutrophils (%) (Auto) 61 % (31-73) 58 % (31-73) Lymphocytes (%) (Auto) 27 % (24-48) 29 % (24-48) Monocytes (%) (Auto) 7 % (0-9) 9 % (0-9) Eosinophils (%) (Auto) 4 % (0-3) 4 % (0-3) Basophils (%) (Auto) 1 % (0-3) 1 % (0-3) Neutrophils # (Auto) 4.6 x10^3uL (1.8-7.7) 3.6 x10^3uL (1.8-7.7) Lymphocytes # (Auto) 2.0 x10^3/uL (1.0-4.8) 1.8 x10^3/uL (1.0-4.8) Monocytes # (Auto) 0.5 x10^3/uL (0.0-1.1) 0.5 x10^3/uL (0.0-1.1) Eosinophils # (Auto) 0.3 x10^3/uL (0.0-0.7) 0.3 x10^3/uL (0.0-0.7) Basophils # (Auto) 0.1 x10^3/uL (0.0-0.2) 0.0 x10^3/uL (0.0-0.2) Sodium Level 134 mmol/L (136-145) 139 mmol/L (136-145) Potassium Level 3.6 mmol/L (3.5-5.1) 4.2 mmol/L (3.5-5.1) Chloride Level 98 mmol/L (98-107) 102 mmol/L (98-107) Carbon Dioxide Level 28 mmol/L (21-32) 29 mmol/L (21-32) Anion Gap 8 (6-14) 8 (6-14) Blood Urea Nitrogen 10 mg/dL (7-20) 11 mg/dL (7-20) Creatinine 0.9 mg/dL (0.6-1.0) 0.9 mg/dL (0.6-1.0) Estimated GFR (Cockcroft-Gault) 59.5 59.5 BUN/Creatinine Ratio 11 (6-20) Glucose Level 96 mg/dL (70-99) 99 mg/dL (70-99) Calcium Level 9.1 mg/dL (8.5-10.1) 8.6 mg/dL (8.5-10.1) Total Bilirubin 0.2 mg/dL (0.2-1.0) Aspartate Amino Transf (AST/SGOT) 13 U/L (15-37) Alanine Aminotransferase (ALT/SGPT) 17 U/L (14-59) Alkaline Phosphatase 66 U/L (46-116) Total Protein 7.1 g/dL (6.4-8.2) Albumin 3.6 g/dL (3.4-5.0) Albumin/Globulin Ratio 1.0 (1.0-1.7) Prothrombin Time 13.0 SEC (11.7-14.0) Prothromb Time International Ratio 1.0 (0.8-1.1) Laboratory Tests Test 05/15/18 04:15 05/15/18 13:15 White Blood Count 6.2 x10^3/uL (4.0-11.0) Red Blood Count 3.72 x10^6/uL (3.50-5.40) Hemoglobin 11.8 g/dL (12.0-15.5) Hematocrit 34.2 % (36.0-47.0) Mean Corpuscular Volume 92 fL (79-100) Mean Corpuscular Hemoglobin 32 pg (25-35) Mean Corpuscular Hemoglobin Concent 35 g/dL (31-37) Red Cell Distribution Width 14.7 % (11.5-14.5) Platelet Count 318 x10^3/uL (140-400) Neutrophils (%) (Auto) 58 % (31-73) Lymphocytes (%) (Auto) 29 % (24-48) Monocytes (%) (Auto) 9 % (0-9) Eosinophils (%) (Auto) 4 % (0-3) Basophils (%) (Auto) 1 % (0-3) Neutrophils # (Auto) 3.6 x10^3uL (1.8-7.7) Lymphocytes # (Auto) 1.8 x10^3/uL (1.0-4.8) Monocytes # (Auto) 0.5 x10^3/uL (0.0-1.1) Eosinophils # (Auto) 0.3 x10^3/uL (0.0-0.7) Basophils # (Auto) 0.0 x10^3/uL (0.0-0.2) Sodium Level 139 mmol/L (136-145) Potassium Level 4.2 mmol/L (3.5-5.1) Chloride Level 102 mmol/L (98-107) Carbon Dioxide Level 29 mmol/L (21-32) Anion Gap 8 (6-14) Blood Urea Nitrogen 11 mg/dL (7-20) Creatinine 0.9 mg/dL (0.6-1.0) Estimated GFR (Cockcroft-Gault) 59.5 Glucose Level 99 mg/dL (70-99) Calcium Level 8.6 mg/dL (8.5-10.1) Prothrombin Time 13.0 SEC (11.7-14.0) Prothromb Time International Ratio 1.0 (0.8-1.1) Medications Current Medications Morphine Sulfate (Morphine Sulfate) 4 mg 1X ONCE IV Last administered on at 18:30; Start 05/13/18 at 17:30; Stop 05/13/18 at 17:34; Status DC Ondansetron HCl (Zofran) 4 mg 1X ONCE IV Last administered on 05/13/18at 18:29 ; Start 05/13/18 at 17:30; Stop 05/13/18 at 17:34; Status DC Fentanyl Citrate (Fentanyl 2ml Vial) 100 mcg [facility]-MED ONCE .ROUTE ; Start at 22:46; Stop 05/13/18 at 22:48; Status DC Fentanyl Citrate (Fentanyl 2ml Vial) 25 mcg 1X ONCE IV Last administered on at 22:54; Start 05/13/18 at 23:00; Stop 05/13/18 at 23:11; Status DC Oxycodone/ Acetaminophen (Percocet 5/325) 2 tab PRN Q4HRS PRN PO MODERATE PAIN Last administered on 05/15/18at 14:01; Start 05/14/18 at 00:00 Morphine Sulfate (Morphine Sulfate) 4 mg PRN Q4HRS PRN IV SEVERE PAIN Last administered on 05/14/18at 00:28; Start 05/14/18 at 00:00 Morphine Sulfate (Morphine Ir) 15 mg PRN Q4HRS PRN PO SEVERE PAIN Last administered on 05/14/18at 13:53; Start 05/14/18 at 00:00 Calcium Carbonate/ Glycine (Tums) 500 mg PRN AFTMEALHC PRN PO INDIGESTION; Start 05/14/18 at 14:00 Bisacodyl (Dulcolax Tab) 10 mg PRN BID PRN PO CONSTIPATION Last administered on 05/14/18at 16:41; Start 05/14/18 at 14:15 Diltiazem HCl (Cardizem 24hr Cd) 120 mg DAILY PO Last administered on at 16:42; Start 05/14/18 at 15:00 Famotidine (Pepcid) 30 mg DAILY PO Last administered on 05/14/18at 16:41; Start 05/14/18 at 15:00 Fluoxetine HCl (PROzac) 10 mg DAILY PO Last administered on 05/14/18at 16:42; Start 05/14/18 at 15:00 Non-Formulary Medication (Budesonide/ Formoterol Fumarate (Symbicort 160-4.5 Mcg Inhaler)) 10.2 gm DAILY IH ; Start 05/15/18 at 09:00; Status UNV Atorvastatin Calcium (Lipitor) 10 mg QHS PO ; Start 05/14/18 at 21:00 Albuterol Sulfate (Ventolin Neb Soln) 2.5 mg Q6HRS NEB Last administered on at 07:07; Start 05/14/18 at 14:30 Budesonide (Pulmicort) 0.5 mg RTBID NEB Last administered on 05/15/18at 07:08; Start 05/14/18 at 20:00 Enoxaparin Sodium (Lovenox 40mg Syringe) 40 mg Q24H SQ ; Start 05/14/18 at 16:00 Senna/Docusate Sodium (Senna Plus) 1 tab BID PO ; Start 05/15/18 at 21:00 Docusate Sodium (Colace) 100 mg BID PO ; Start 05/15/18 at 21:00 Magnesium Hydroxide (Milk Of Magnesia) 2,400 mg PRN Q12HR PRN PO CONSTIPATION; Start 05/15/18 at 12:00 Lactulose (Lactulose) 20 gm PRN Q12HR PRN PO CONSTIPATION; Start 05/15/18 at 12 :00 Oxycodone/ Acetaminophen (Percocet 5/325) 1 tab PRN Q4HRS PRN PO PAIN; Start at 12:00 Midazolam HCl (Versed) 2 mg STK-MED ONCE .ROUTE ; Start 05/15/18 at 14:02; Stop 05/15/18 at 14:03; Status DC Fentanyl Citrate (Fentanyl 2ml Vial) 100 mcg [facility]-MED ONCE .ROUTE ; Start at 14:02; Stop 05/15/18 at 14:03; Status DC Lidocaine/Sodium Bicarbonate (Buffered Lidocaine 1%) 3 ml [facility]-MED ONCE .ROUTE ; Start 05/15/18 at 14:10; Stop 05/15/18 at 14:11; Status DC Iohexol (Omnipaque 240 Mg/ml) 50 ml [facility]-MED ONCE .ROUTE ; Start 05/15/18 at 14: 11; Stop 05/15/18 at 14:12; Status DC Cefazolin Sodium 50 ml @ As Directed STK-MED ONCE IV ; Start 05/15/18 at 14:11; Stop 05/15/18 at 14:12; Status DC Active Scripts Active Reported Dulcolax (Bisacodyl) 5 Mg Tablet.dr 2 Tab PO BID PRN Pepcid (Famotidine) 20 Mg Tablet 1.5 Tab PO DAILY Hydrocodone-Apap 5-325 (Hydrocodone Bit/Acetaminophen) 1 Each Tablet 1-2 Tab PO Q4-6HRS Prozac (Fluoxetine Hcl) 10 Mg Capsule 10 Mg PO DAILY Symbicort 160-4.5 Mcg Inhaler (Budesonide/Formoterol Fumarate) 10.2 Gm Hfa.aer.ad 10.2 Gm IH DAILY Vitals/I & O Vital Sign - Last 24 Hours 05/14/18 05/14/18 05/14/18 05/14/18 14:53 15:00 16:42 16:43 Temp 98.2 98.2 Pulse 79 74 Resp 16 B/P (MAP) 126/50 (75) 141/68 Pulse Ox 93 O2 Delivery Room Air Room Air Room Air 05/14/18 05/14/18 05/14/18 05/14/18 19:30 20:00 20:01 23:18 Temp 97.6 97.9 97.6 97.9 Pulse 76 73 Resp 18 18 B/P (MAP) 112/59 (76) 134/69 (90) Pulse Ox 96 94 97 O2 Delivery Room Air Room Air Room Air Room Air 05/15/18 05/15/18 05/15/18 05/15/18 01:29 03:12 03:22 07:00 Temp 98.2 97.5 98.2 97.5 Pulse 69 83 Resp 18 16 B/P (MAP) 129/58 (81) 129/52 (77) Pulse Ox 93 95 O2 Delivery Room Air Room Air Room Air Room Air 05/15/18 05/15/18 05/15/18 05/15/18 07:08 07:50 07:57 09:00 Pulse Ox 89 89 89 O2 Delivery Room Air Room Air Room Air Room Air 05/15/18 05/15/18 11:00 14:01 Temp 97.7 97.7 Pulse 75 Resp 16 B/P (MAP) 120/54 (76) Pulse Ox 98 98 O2 Delivery Room Air Room Air Intake and Output 05/14/18 05/14/18 05/15/18 15:00 23:00 07:00 Intake Total 180 ml 1200 ml 240 ml Balance 180 ml 1200 ml 240 ml SONG GALARZA MD May 15, 2018 14:40
[2018-05-15] MEDS ORDERED: LIDOCAINE WITH 8.4% SOD BICARB 3 ML DISP.SYRIN. IJ ONE (14:45)
[2018-05-15] MEDS ORDERED: fentaNYL PF VIAL 100 MCG/2 ML VIAL IV ONE (14:45)
[2018-05-15] MEDS ORDERED: MIDAZOLAM HCL/PF 2 MG/2 ML VIAL. IV ONE (14:45)
[2018-05-15] MEDS: ENOXAPARIN 40 MG/0.4 ML SYRINGE. SQ SCH (16:00)
--- NOTE | 2018-05-15 16:04 | RAD ---
Procedure: Kyphoplasty of T12 Clinical Indication: 87-year-old female with acute debilitating osteophyte which compression fracture of T12 Sedation: Conscious sedation was administered with a total intraprocedural [id number] time of 40 minutes. The patient was monitored by a qualified independent observer throughout the time of sedation. Please refer to the medical record for exact doses of medications utilized to achieve moderate sedation. Antibiotics: Antibiotic was administered intravenously within 1 hour of the procedure start time. Exposure: Kerma-Area Product: Gycm2 OR Fluoro Time: 4.9 minutes Images: 6 Contrast: None Sterility: All elements of maximal sterile barrier technique including the use of a cap, mask, sterile gown, sterile gloves, large sterile sheet, appropriate hand hygiene, and 2% chlorhexidine for cutaneous antisepsis (or acceptable alternative antiseptic per current guidelines) were followed for this procedure. Consent: The procedure was explained in its entirety to the patient or the patients designated financial services representative by a member of the treatment team, including a discussion of the risks, benefits and commonly accepted alternatives to the procedure, as well as the expected consequences of no therapy whatsoever. Discussion of the risks included, but was not limited to, those that are most frequent and those that are rare but possibly severe or life-threatening, as well as the possibility of unforeseen complications. Technique and Findings: Following informed consent, the patient was prepped and draped in usual sterile fashion. 1% lidocaine was used to achieve local anesthesia over the paraspinal soft tissues on the left. A small dermatotomy was made. Under fluoroscopic guidance, a 10-gauge needle was advanced to the anterior aspect of the T12 vertebral body and a balloon was used to create a cavity. Polymethylmethacrylate was instilled. The needle was then removed and hemostasis was achieved with manual compression. Complications: No immediate Impression: 1. Fluoroscopic guided kyphoplasty of T12 as described
[2018-05-15] MEDS: ATORVASTATIN CALCIUM 10 MG TABLET. PO SCH (20:48)
[2018-05-15] MEDS: SENNOSIDES/DOCUSATE 8.6/50MG TABLET. PO SCH (20:48)
[2018-05-15] MEDS: DOCUSATE SODIUM 100 MG CAPSULE. PO SCH (20:48)
[2018-05-16 03:00] VITALS: BP 136/64
[2018-05-16 05:47] LABS: BASO % 1 % (0-3); EOS # 0.2 x10^3/uL (0.0-0.7); EOS % 3 % (0-3); HEMATOCRIT 34.5 % (36.0-47.0); HEMOGLOBIN 11.7 g/dL (12.0-15.5); LYMPH # 1.5 x10^3/uL (1.0-4.8); LYMPH % 22 % (24-48); MEAN CORPUSCULAR HEMOGLOBIN 31 pg (25-35); MEAN CORPUSCULAR HGB CONC 34 g/dL (31-37); MEAN CORPUSCULAR VOLUME 92 fL (79-100); MONO # 0.4 x10^3/uL (0.0-1.1); MONO % 7 % (0-9); NEUT # 4.5 x10^3uL (1.8-7.7); NEUT % 67 % (31-73); PLATELET COUNT 326 x10^3/uL (140-400); RED BLOOD COUNT 3.76 x10^6/uL (3.50-5.40); RED CELL DISTRIBUTION WIDTH 14.8 % (11.5-14.5); WHITE BLOOD COUNT 6.7 x10^3/uL (4.0-11.0)
[2018-05-16] MEDS: ALBUTEROL SULFATE 2.5 MG/3 ML NEBU. NEB SCH ×4 (06:00→20:27)
[2018-05-16 06:11] LABS: CALCIUM 9.2 mg/dL (8.5-10.1); CREATININE 0.8 mg/dL (0.6-1.0); GFR 68.2; POTASSIUM 3.6 mmol/L (3.5-5.1)
[2018-05-16 07:00] VITALS: BP 149/63
[2018-05-16] MEDS: BUDESONIDE 0.5 MG/2 ML NEBU. NEB SCH ×2 (08:00→20:27)
[2018-05-16] MEDS: oxyCODONE/APAP 5/325 1 TAB TABLET PO PRN ×2 (10:03→17:39)
[2018-05-16] MEDS: DOCUSATE SODIUM 100 MG CAPSULE. PO SCH ×2 (10:04→21:40)
[2018-05-16] MEDS: SENNOSIDES/DOCUSATE 8.6/50MG TABLET. PO SCH ×2 (10:05→21:40)
[2018-05-16] MEDS: FAMOTIDINE 20 MG TABLET. PO SCH (10:06)
[2018-05-16] MEDS: FLUoxetine HCL 10 MG CAPSULE PO SCH (10:06)
--- NOTE | 2018-05-16 10:26 | PDOC ---
PROGRESS NOTES Subjective Subjective She is not sure of any help from kyphoplasty. Objective Objective Vital Signs Date Time Temp Pulse Resp B/P (MAP) Pulse Ox O2 Delivery O2 Flow Rate FiO2 05/16/18 10:07 68 149/63 05/16/18 10:03 Room Air 05/16/18 07:00 98.6 16 95 98.6 05/15/18 21:51 2.0 Intake and Output 05/16/18 07:00 Intake Total 120 ml Balance 120 ml Intake Oral 120 ml # Voids 1 Physical Exam Physical Exam She is awake and no change with her neurological status and she continues to get up and walk with roller walker.I spoke to physical and occupational therapy and they feel that she is somewhat confused and they recommend 24 hour supervision if she goes home today. She is constipated for 4 days. Assessment Assessment Problems Medical Problems: (1) Intractable back pain Status: Acute (2) T12 compression fracture Status: Acute Plan Plan of Care To let her stay one more day and home with home health follow up tomorrow. Comment Review of Relevant I have reviewed the following items jocelyn (where applicable) has been applied. Labs Laboratory Tests Test 05/15/18 04:15 05/15/18 13:15 05/16/18 04:55 White Blood Count 6.2 x10^3/uL (4.0-11.0) 6.7 x10^3/uL (4.0-11.0) Red Blood Count 3.72 x10^6/uL (3.50-5.40) 3.76 x10^6/uL (3.50-5.40) Hemoglobin 11.8 g/dL (12.0-15.5) 11.7 g/dL (12.0-15.5) Hematocrit 34.2 % (36.0-47.0) 34.5 % (36.0-47.0) Mean Corpuscular Volume 92 fL (79-100) 92 fL (79-100) Mean Corpuscular Hemoglobin 32 pg (25-35) 31 pg (25-35) Mean Corpuscular Hemoglobin Concent 35 g/dL (31-37) 34 g/dL (31-37) Red Cell Distribution Width 14.7 % (11.5-14.5) 14.8 % (11.5-14.5) Platelet Count 318 x10^3/uL (140-400) 326 x10^3/uL (140-400) Neutrophils (%) (Auto) 58 % (31-73) 67 % (31-73) Lymphocytes (%) (Auto) 29 % (24-48) 22 % (24-48) Monocytes (%) (Auto) 9 % (0-9) 7 % (0-9) Eosinophils (%) (Auto) 4 % (0-3) 3 % (0-3) Basophils (%) (Auto) 1 % (0-3) 1 % (0-3) Neutrophils # (Auto) 3.6 x10^3uL (1.8-7.7) 4.5 x10^3uL (1.8-7.7) Lymphocytes # (Auto) 1.8 x10^3/uL (1.0-4.8) 1.5 x10^3/uL (1.0-4.8) Monocytes # (Auto) 0.5 x10^3/uL (0.0-1.1) 0.4 x10^3/uL (0.0-1.1) Eosinophils # (Auto) 0.3 x10^3/uL (0.0-0.7) 0.2 x10^3/uL (0.0-0.7) Basophils # (Auto) 0.0 x10^3/uL (0.0-0.2) 0.0 x10^3/uL (0.0-0.2) Sodium Level 139 mmol/L (136-145) 139 mmol/L (136-145) Potassium Level 4.2 mmol/L (3.5-5.1) 3.6 mmol/L (3.5-5.1) Chloride Level 102 mmol/L (98-107) 100 mmol/L (98-107) Carbon Dioxide Level 29 mmol/L (21-32) 30 mmol/L (21-32) Anion Gap 8 (6-14) 9 (6-14) Blood Urea Nitrogen 11 mg/dL (7-20) 12 mg/dL (7-20) Creatinine 0.9 mg/dL (0.6-1.0) 0.8 mg/dL (0.6-1.0) Estimated GFR (Cockcroft-Gault) 59.5 68.2 Glucose Level 99 mg/dL (70-99) 102 mg/dL (70-99) Calcium Level 8.6 mg/dL (8.5-10.1) 9.2 mg/dL (8.5-10.1) Prothrombin Time 13.0 SEC (11.7-14.0) Prothromb Time International Ratio 1.0 (0.8-1.1) Laboratory Tests Test 05/15/18 13:15 05/16/18 04:55 Prothrombin Time 13.0 SEC (11.7-14.0) Prothromb Time International Ratio 1.0 (0.8-1.1) White Blood Count 6.7 x10^3/uL (4.0-11.0) Red Blood Count 3.76 x10^6/uL (3.50-5.40) Hemoglobin 11.7 g/dL (12.0-15.5) Hematocrit 34.5 % (36.0-47.0) Mean Corpuscular Volume 92 fL (79-100) Mean Corpuscular Hemoglobin 31 pg (25-35) Mean Corpuscular Hemoglobin Concent 34 g/dL (31-37) Red Cell Distribution Width 14.8 % (11.5-14.5) Platelet Count 326 x10^3/uL (140-400) Neutrophils (%) (Auto) 67 % (31-73) Lymphocytes (%) (Auto) 22 % (24-48) Monocytes (%) (Auto) 7 % (0-9) Eosinophils (%) (Auto) 3 % (0-3) Basophils (%) (Auto) 1 % (0-3) Neutrophils # (Auto) 4.5 x10^3uL (1.8-7.7) Lymphocytes # (Auto) 1.5 x10^3/uL (1.0-4.8) Monocytes # (Auto) 0.4 x10^3/uL (0.0-1.1) Eosinophils # (Auto) 0.2 x10^3/uL (0.0-0.7) Basophils # (Auto) 0.0 x10^3/uL (0.0-0.2) Sodium Level 139 mmol/L (136-145) Potassium Level 3.6 mmol/L (3.5-5.1) Chloride Level 100 mmol/L (98-107) Carbon Dioxide Level 30 mmol/L (21-32) Anion Gap 9 (6-14) Blood Urea Nitrogen 12 mg/dL (7-20) Creatinine 0.8 mg/dL (0.6-1.0) Estimated GFR (Cockcroft-Gault) 68.2 Glucose Level 102 mg/dL (70-99) Calcium Level 9.2 mg/dL (8.5-10.1) Medications Current Medications Morphine Sulfate (Morphine Sulfate) 4 mg 1X ONCE IV Last administered on at 18:30; Start 05/13/18 at 17:30; Stop 05/13/18 at 17:34; Status DC Ondansetron HCl (Zofran) 4 mg 1X ONCE IV Last administered on 05/13/18at 18:29 ; Start 05/13/18 at 17:30; Stop 05/13/18 at 17:34; Status DC Fentanyl Citrate (Fentanyl 2ml Vial) 100 mcg K-MED ONCE .ROUTE ; Start at 22:46; Stop 05/13/18 at 22:48; Status DC Fentanyl Citrate (Fentanyl 2ml Vial) 25 mcg 1X ONCE IV Last administered on at 22:54; Start 05/13/18 at 23:00; Stop 05/13/18 at 23:11; Status DC Oxycodone/ Acetaminophen (Percocet 5/325) 2 tab PRN Q4HRS PRN PO MODERATE PAIN Last administered on 05/16/18at 10:03; Start 05/14/18 at 00:00 Morphine Sulfate (Morphine Sulfate) 4 mg PRN Q4HRS PRN IV SEVERE PAIN Last administered on 05/14/18at 00:28; Start 05/14/18 at 00:00 Morphine Sulfate (Morphine Ir) 15 mg PRN Q4HRS PRN PO SEVERE PAIN Last administered on 05/14/18at 13:53; Start 05/14/18 at 00:00 Calcium Carbonate/ Glycine (Tums) 500 mg PRN AFTMEALHC PRN PO INDIGESTION; Start 05/14/18 at 14:00 Bisacodyl (Dulcolax Tab) 10 mg PRN BID PRN PO CONSTIPATION Last administered on 05/14/18at 16:41; Start 05/14/18 at 14:15 Diltiazem HCl (Cardizem 24hr Cd) 120 mg DAILY PO Last administered on at 10:07; Start 05/14/18 at 15:00 Famotidine (Pepcid) 30 mg DAILY PO Last administered on 05/16/18at 10:06; Start 05/14/18 at 15:00 Fluoxetine HCl (PROzac) 10 mg DAILY PO Last administered on 05/16/18at 10:06; Start 05/14/18 at 15:00 Non-Formulary Medication (Budesonide/ Formoterol Fumarate (Symbicort 160-4.5 Mcg Inhaler)) 10.2 gm DAILY IH ; Start 05/15/18 at 09:00; Status UNV Atorvastatin Calcium (Lipitor) 10 mg QHS PO Last administered on 05/15/18at 20: 48; Start 05/14/18 at 21:00 Albuterol Sulfate (Ventolin Neb Soln) 2.5 mg Q6HRS NEB Last administered on at 19:51; Start 05/14/18 at 14:30 Budesonide (Pulmicort) 0.5 mg RTBID NEB Last administered on 05/15/18at 19:52; Start 05/14/18 at 20:00 Enoxaparin Sodium (Lovenox 40mg Syringe) 40 mg Q24H SQ ; Start 05/14/18 at 16:00 Senna/Docusate Sodium (Senna Plus) 1 tab BID PO Last administered on 05/16/18at 10:05; Start 05/15/18 at 21:00 Docusate Sodium (Colace) 100 mg BID PO Last administered on 05/16/18at 10:04; Start 05/15/18 at 21:00 Magnesium Hydroxide (Milk Of Magnesia) 2,400 mg PRN Q12HR PRN PO CONSTIPATION; Start 05/15/18 at 12:00 Lactulose (Lactulose) 20 gm PRN Q12HR PRN PO CONSTIPATION; Start 05/15/18 at 12 :00 Oxycodone/ Acetaminophen (Percocet 5/325) 1 tab PRN Q4HRS PRN PO PAIN; Start at 12:00 Midazolam HCl (Versed) 2 mg STK-MED ONCE .ROUTE ; Start 05/15/18 at 14:02; Stop 05/15/18 at 14:03; Status DC Fentanyl Citrate (Fentanyl 2ml Vial) 100 mcg STK-MED ONCE .ROUTE ; Start at 14:02; Stop 05/15/18 at 14:03; Status DC Lidocaine/Sodium Bicarbonate (Buffered Lidocaine 1%) 3 ml STK-MED ONCE .ROUTE ; Start 05/15/18 at 14:10; Stop 05/15/18 at 14:11; Status DC Iohexol (Omnipaque 240 Mg/ml) 50 ml STK-MED ONCE .ROUTE ; Start 05/15/18 at 14: 11; Stop 05/15/18 at 14:12; Status DC Cefazolin Sodium 50 ml @ As Directed STK-MED ONCE IV ; Start 05/15/18 at 14:11; Stop 05/15/18 at 14:12; Status DC Lidocaine/Sodium Bicarbonate (Buffered Lidocaine 1%) 3 ml 1X ONCE IJ Last administered on 05/15/18at 14:45; Start 05/15/18 at 14:45; Stop 05/15/18 at 14:46 ; Status DC Midazolam HCl (Versed) 2 mg 1X ONCE IV Last administered on 05/15/18at 14:45; Start 05/15/18 at 14:45; Stop 05/15/18 at 14:46; Status DC Fentanyl Citrate (Fentanyl 2ml Vial) 100 mcg 1X ONCE IV Last administered on at 14:45; Start 05/15/18 at 14:45; Stop 05/15/18 at 14:46; Status DC Cefazolin Sodium 50 ml @ 100 mls/hr 1X ONCE IV Last administered on at 14:45; Start 05/15/18 at 14:45; Stop 05/15/18 at 15:14; Status DC Lidocaine/Sodium Bicarbonate (Buffered Lidocaine 1%) 3 ml STK-MED ONCE .ROUTE ; Start 05/15/18 at 14:59; Stop 05/15/18 at 15:00; Status DC Active Scripts Active Reported Dulcolax (Bisacodyl) 5 Mg Tablet.dr 2 Tab PO BID PRN Pepcid (Famotidine) 20 Mg Tablet 1.5 Tab PO DAILY Hydrocodone-Apap 5-325 (Hydrocodone Bit/Acetaminophen) 1 Each Tablet 1-2 Tab PO Q4-6HRS Prozac (Fluoxetine Hcl) 10 Mg Capsule 10 Mg PO DAILY Symbicort 160-4.5 Mcg Inhaler (Budesonide/Formoterol Fumarate) 10.2 Gm Hfa.aer.ad 10.2 Gm IH DAILY Vitals/I & O Vital Sign - Last 24 Hours 05/15/18 05/15/18 05/15/18 05/15/18 11:00 14:01 14:45 14:54 Temp 97.7 97.7 97.7 97.7 Pulse 75 78 Resp 16 16 18 B/P (MAP) 120/54 (76) 140/74 (96) Pulse Ox 98 98 98 O2 Delivery Room Air Room Air Room Air 05/15/18 05/15/18 05/15/18 05/15/18 15:26 15:27 15:49 16:01 Pulse 73 53 70 64 Resp 14 B/P (MAP) 116/66 (83) 144/53 (83) 142/44 (76) Pulse Ox 99 98 O2 Delivery Nasal Cannula O2 Flow Rate 2.0 05/15/18 05/15/18 05/15/18 05/15/18 16:16 16:31 16:46 17:17 Pulse 62 65 67 66 B/P (MAP) 129/46 (73) 132/52 (78) 133/57 (82) 135/54 (81) 05/15/18 05/15/18 05/15/18 05/15/18 17:46 19:00 19:53 19:54 Temp 97.9 97.9 Pulse 68 84 Resp 16 B/P (MAP) 126/46 (72) 101/48 (65) Pulse Ox 98 95 95 O2 Delivery Room Air Nasal Cannula Nasal Cannula O2 Flow Rate 2.0 2.0 05/15/18 05/15/18 05/15/18 05/15/18 20:00 20:49 21:51 23:00 Temp 97.9 97.9 Pulse 72 Resp 18 18 16 B/P (MAP) 133/47 (75) Pulse Ox 95 O2 Delivery Room Air Room Air Nasal Cannula Room Air O2 Flow Rate 2.0 2.0 05/16/18 05/16/18 05/16/18 05/16/18 03:00 07:00 10:03 10:07 Temp 97.7 98.6 97.7 98.6 Pulse 84 68 68 Resp 16 16 B/P (MAP) 136/64 (88) 149/63 (91) 149/63 Pulse Ox 97 95 O2 Delivery Room Air Room Air Room Air Intake and Output 05/15/18 05/15/18 05/16/18 15:00 23:00 07:00 Intake Total 120 ml 0 ml Balance 120 ml 0 ml JAMAR MERAZ MD May 16, 2018 10:26
[2018-05-16] MEDS ORDERED: MAGNESIUM CITRATE 296 ML SOLUTION. PO PRN (10:30)
[2018-05-16] MEDS ORDERED: BISACODYL 10 MG SUPP.RECT. PR PRN (10:30)
[2018-05-16 10:43] VITALS: BP 144/75
[2018-05-16] MEDS: POLYETHYLENE GLYCOL 3350 17 GM PACKET. PO SCH (11:59)
[2018-05-16] MEDS: MAGNESIUM HYDROXIDE 2,400 MG/30 ML ORAL.SUSP. PO SCH ×2 (12:00→21:41)
--- NOTE | 2018-05-16 13:21 | PDOC ---
PROGRESS NOTES Chief Complaint Chief Complaint lower back pain with compressive t12 fx s/p kyphoplasty wo improvement pafib anxiety depression. HLD constipation copd stable plan: fu with Dr. José Miguel chi done add percocet for pain control add stool softner pt wants go home, dr Valdez recommend tmr PTOT History of Present Illness History of Present Illness can walk, but severe lower back pain, + constipation 3ds, no incontinence was in [facility] before for the lower back pain, no intervention no improvement from kyphoplasty Vitals Vitals Vital Signs Date Time Temp Pulse Resp B/P (MAP) Pulse Ox O2 Delivery O2 Flow Rate FiO2 05/16/18 12:37 Room Air 05/16/18 10:43 98.0 87 17 144/75 (98) 95 98.0 05/15/18 21:51 2.0 Physical Exam Physical Exam lower back tenderness General: Alert, Oriented X3, Cooperative, moderate distress Heart: Regular rate, Normal S1 Lungs: Clear Abdomen: Normal bowel sounds, Soft Extremities: No clubbing, No cyanosis Labs LABS Laboratory Tests Test 05/16/18 04:55 White Blood Count 6.7 x10^3/uL (4.0-11.0) Red Blood Count 3.76 x10^6/uL (3.50-5.40) Hemoglobin 11.7 g/dL (12.0-15.5) Hematocrit 34.5 % (36.0-47.0) Mean Corpuscular Volume 92 fL (79-100) Mean Corpuscular Hemoglobin 31 pg (25-35) Mean Corpuscular Hemoglobin Concent 34 g/dL (31-37) Red Cell Distribution Width 14.8 % (11.5-14.5) Platelet Count 326 x10^3/uL (140-400) Neutrophils (%) (Auto) 67 % (31-73) Lymphocytes (%) (Auto) 22 % (24-48) Monocytes (%) (Auto) 7 % (0-9) Eosinophils (%) (Auto) 3 % (0-3) Basophils (%) (Auto) 1 % (0-3) Neutrophils # (Auto) 4.5 x10^3uL (1.8-7.7) Lymphocytes # (Auto) 1.5 x10^3/uL (1.0-4.8) Monocytes # (Auto) 0.4 x10^3/uL (0.0-1.1) Eosinophils # (Auto) 0.2 x10^3/uL (0.0-0.7) Basophils # (Auto) 0.0 x10^3/uL (0.0-0.2) Sodium Level 139 mmol/L (136-145) Potassium Level 3.6 mmol/L (3.5-5.1) Chloride Level 100 mmol/L (98-107) Carbon Dioxide Level 30 mmol/L (21-32) Anion Gap 9 (6-14) Blood Urea Nitrogen 12 mg/dL (7-20) Creatinine 0.8 mg/dL (0.6-1.0) Estimated GFR (Cockcroft-Gault) 68.2 Glucose Level 102 mg/dL (70-99) Calcium Level 9.2 mg/dL (8.5-10.1) Assessment and Plan Assessmemt and Plan Problems Medical Problems: (1) Intractable back pain Status: Acute (2) T12 compression fracture Status: Acute Comment Review of Relevant I have reviewed the following items jocelyn (where applicable) has been applied. Labs Laboratory Tests Test 05/15/18 04:15 05/15/18 13:15 05/16/18 04:55 White Blood Count 6.2 x10^3/uL (4.0-11.0) 6.7 x10^3/uL (4.0-11.0) Red Blood Count 3.72 x10^6/uL (3.50-5.40) 3.76 x10^6/uL (3.50-5.40) Hemoglobin 11.8 g/dL (12.0-15.5) 11.7 g/dL (12.0-15.5) Hematocrit 34.2 % (36.0-47.0) 34.5 % (36.0-47.0) Mean Corpuscular Volume 92 fL (79-100) 92 fL (79-100) Mean Corpuscular Hemoglobin 32 pg (25-35) 31 pg (25-35) Mean Corpuscular Hemoglobin Concent 35 g/dL (31-37) 34 g/dL (31-37) Red Cell Distribution Width 14.7 % (11.5-14.5) 14.8 % (11.5-14.5) Platelet Count 318 x10^3/uL (140-400) 326 x10^3/uL (140-400) Neutrophils (%) (Auto) 58 % (31-73) 67 % (31-73) Lymphocytes (%) (Auto) 29 % (24-48) 22 % (24-48) Monocytes (%) (Auto) 9 % (0-9) 7 % (0-9) Eosinophils (%) (Auto) 4 % (0-3) 3 % (0-3) Basophils (%) (Auto) 1 % (0-3) 1 % (0-3) Neutrophils # (Auto) 3.6 x10^3uL (1.8-7.7) 4.5 x10^3uL (1.8-7.7) Lymphocytes # (Auto) 1.8 x10^3/uL (1.0-4.8) 1.5 x10^3/uL (1.0-4.8) Monocytes # (Auto) 0.5 x10^3/uL (0.0-1.1) 0.4 x10^3/uL (0.0-1.1) Eosinophils # (Auto) 0.3 x10^3/uL (0.0-0.7) 0.2 x10^3/uL (0.0-0.7) Basophils # (Auto) 0.0 x10^3/uL (0.0-0.2) 0.0 x10^3/uL (0.0-0.2) Sodium Level 139 mmol/L (136-145) 139 mmol/L (136-145) Potassium Level 4.2 mmol/L (3.5-5.1) 3.6 mmol/L (3.5-5.1) Chloride Level 102 mmol/L (98-107) 100 mmol/L (98-107) Carbon Dioxide Level 29 mmol/L (21-32) 30 mmol/L (21-32) Anion Gap 8 (6-14) 9 (6-14) Blood Urea Nitrogen 11 mg/dL (7-20) 12 mg/dL (7-20) Creatinine 0.9 mg/dL (0.6-1.0) 0.8 mg/dL (0.6-1.0) Estimated GFR (Cockcroft-Gault) 59.5 68.2 Glucose Level 99 mg/dL (70-99) 102 mg/dL (70-99) Calcium Level 8.6 mg/dL (8.5-10.1) 9.2 mg/dL (8.5-10.1) Prothrombin Time 13.0 SEC (11.7-14.0) Prothromb Time International Ratio 1.0 (0.8-1.1) Laboratory Tests Test 05/16/18 04:55 White Blood Count 6.7 x10^3/uL (4.0-11.0) Red Blood Count 3.76 x10^6/uL (3.50-5.40) Hemoglobin 11.7 g/dL (12.0-15.5) Hematocrit 34.5 % (36.0-47.0) Mean Corpuscular Volume 92 fL (79-100) Mean Corpuscular Hemoglobin 31 pg (25-35) Mean Corpuscular Hemoglobin Concent 34 g/dL (31-37) Red Cell Distribution Width 14.8 % (11.5-14.5) Platelet Count 326 x10^3/uL (140-400) Neutrophils (%) (Auto) 67 % (31-73) Lymphocytes (%) (Auto) 22 % (24-48) Monocytes (%) (Auto) 7 % (0-9) Eosinophils (%) (Auto) 3 % (0-3) Basophils (%) (Auto) 1 % (0-3) Neutrophils # (Auto) 4.5 x10^3uL (1.8-7.7) Lymphocytes # (Auto) 1.5 x10^3/uL (1.0-4.8) Monocytes # (Auto) 0.4 x10^3/uL (0.0-1.1) Eosinophils # (Auto) 0.2 x10^3/uL (0.0-0.7) Basophils # (Auto) 0.0 x10^3/uL (0.0-0.2) Sodium Level 139 mmol/L (136-145) Potassium Level 3.6 mmol/L (3.5-5.1) Chloride Level 100 mmol/L (98-107) Carbon Dioxide Level 30 mmol/L (21-32) Anion Gap 9 (6-14) Blood Urea Nitrogen 12 mg/dL (7-20) Creatinine 0.8 mg/dL (0.6-1.0) Estimated GFR (Cockcroft-Gault) 68.2 Glucose Level 102 mg/dL (70-99) Calcium Level 9.2 mg/dL (8.5-10.1) Medications Current Medications Morphine Sulfate (Morphine Sulfate) 4 mg 1X ONCE IV Last administered on at 18:30; Start 05/13/18 at 17:30; Stop 05/13/18 at 17:34; Status DC Ondansetron HCl (Zofran) 4 mg 1X ONCE IV Last administered on 05/13/18at 18:29 ; Start 05/13/18 at 17:30; Stop 05/13/18 at 17:34; Status DC Fentanyl Citrate (Fentanyl 2ml Vial) 100 mcg STK-MED ONCE .ROUTE ; Start at 22:46; Stop 05/13/18 at 22:48; Status DC Fentanyl Citrate (Fentanyl 2ml Vial) 25 mcg 1X ONCE IV Last administered on at 22:54; Start 05/13/18 at 23:00; Stop 05/13/18 at 23:11; Status DC Oxycodone/ Acetaminophen (Percocet 5/325) 2 tab PRN Q4HRS PRN PO MODERATE PAIN Last administered on 05/16/18at 10:03; Start 05/14/18 at 00:00 Morphine Sulfate (Morphine Sulfate) 4 mg PRN Q4HRS PRN IV SEVERE PAIN Last administered on 05/14/18at 00:28; Start 05/14/18 at 00:00 Morphine Sulfate (Morphine Ir) 15 mg PRN Q4HRS PRN PO SEVERE PAIN Last administered on 05/14/18at 13:53; Start 05/14/18 at 00:00 Calcium Carbonate/ Glycine (Tums) 500 mg PRN AFTMEALHC PRN PO INDIGESTION; Start 05/14/18 at 14:00 Bisacodyl (Dulcolax Tab) 10 mg PRN BID PRN PO CONSTIPATION Last administered on 05/14/18at 16:41; Start 05/14/18 at 14:15 Diltiazem HCl (Cardizem 24hr Cd) 120 mg DAILY PO Last administered on at 10:07; Start 05/14/18 at 15:00 Famotidine (Pepcid) 30 mg DAILY PO Last administered on 05/16/18at 10:06; Start 05/14/18 at 15:00 Fluoxetine HCl (PROzac) 10 mg DAILY PO Last administered on 05/16/18at 10:06; Start 05/14/18 at 15:00 Non-Formulary Medication (Budesonide/ Formoterol Fumarate (Symbicort 160-4.5 Mcg Inhaler)) 10.2 gm DAILY IH ; Start 05/15/18 at 09:00; Status UNV Atorvastatin Calcium (Lipitor) 10 mg QHS PO Last administered on 05/15/18at 20: 48; Start 05/14/18 at 21:00 Albuterol Sulfate (Ventolin Neb Soln) 2.5 mg Q6HRS NEB Last administered on at 12:35; Start 05/14/18 at 14:30 Budesonide (Pulmicort) 0.5 mg RTBID NEB Last administered on 05/15/18at 19:52; Start 05/14/18 at 20:00 Enoxaparin Sodium (Lovenox 40mg Syringe) 40 mg Q24H SQ ; Start 05/14/18 at 16:00 Senna/Docusate Sodium (Senna Plus) 1 tab BID PO Last administered on 05/16/18at 10:05; Start 05/15/18 at 21:00 Docusate Sodium (Colace) 100 mg BID PO Last administered on 05/16/18at 10:04; Start 05/15/18 at 21:00 Magnesium Hydroxide (Milk Of Magnesia) 2,400 mg PRN Q12HR PRN PO CONSTIPATION ( 2nd Choice); Start 05/15/18 at 12:00; Stop 05/16/18 at 11:00; Status DC Lactulose (Lactulose) 20 gm PRN Q12HR PRN PO CONSTIPATION (3rd Choice); Start 05/15/18 at 12:00 Oxycodone/ Acetaminophen (Percocet 5/325) 1 tab PRN Q4HRS PRN PO PAIN; Start at 12:00 Midazolam HCl (Versed) 2 mg STK-MED ONCE .ROUTE ; Start 05/15/18 at 14:02; Stop 05/15/18 at 14:03; Status DC Fentanyl Citrate (Fentanyl 2ml Vial) 100 mcg STK-MED ONCE .ROUTE ; Start at 14:02; Stop 05/15/18 at 14:03; Status DC Lidocaine/Sodium Bicarbonate (Buffered Lidocaine 1%) 3 ml STK-MED ONCE .ROUTE ; Start 05/15/18 at 14:10; Stop 05/15/18 at 14:11; Status DC Iohexol (Omnipaque 240 Mg/ml) 50 ml STK-MED ONCE .ROUTE ; Start 05/15/18 at 14: 11; Stop 05/15/18 at 14:12; Status DC Cefazolin Sodium 50 ml @ As Directed STK-MED ONCE IV ; Start 05/15/18 at 14:11; Stop 05/15/18 at 14:12; Status DC Lidocaine/Sodium Bicarbonate (Buffered Lidocaine 1%) 3 ml 1X ONCE IJ Last administered on 05/15/18at 14:45; Start 05/15/18 at 14:45; Stop 05/15/18 at 14:46 ; Status DC Midazolam HCl (Versed) 2 mg 1X ONCE IV Last administered on 05/15/18at 14:45; Start 05/15/18 at 14:45; Stop 05/15/18 at 14:46; Status DC Fentanyl Citrate (Fentanyl 2ml Vial) 100 mcg 1X ONCE IV Last administered on at 14:45; Start 05/15/18 at 14:45; Stop 05/15/18 at 14:46; Status DC Cefazolin Sodium 50 ml @ 100 mls/hr 1X ONCE IV Last administered on at 14:45; Start 05/15/18 at 14:45; Stop 05/15/18 at 15:14; Status DC Lidocaine/Sodium Bicarbonate (Buffered Lidocaine 1%) 3 ml STK-MED ONCE .ROUTE ; Start 05/15/18 at 14:59; Stop 05/15/18 at 15:00; Status DC Bisacodyl (Dulcolax Tab) 10 mg DAILY PO ; Start 05/17/18 at 09:00 Magnesium Citrate (Citroma) 296 ml PRN 1X PRN PO CONSTIPATION; Start 05/16/18 at 10:30 Bisacodyl (Dulcolax Supp) 10 mg PRN DAILY PRN [place] CONSTIPATION (1st Choice); Start 05/16/18 at 10:30 Magnesium Hydroxide (Milk Of Magnesia) 2,400 mg BID PO Last administered on at 12:00; Start 05/16/18 at 11:00 Polyethylene Glycol (miraLAX PACKET) 17 gm DAILY PO Last administered on at 11:59; Start 05/16/18 at 11:00 Active Scripts Active Reported Dulcolax (Bisacodyl) 5 Mg Tablet.dr 2 Tab PO BID PRN Pepcid (Famotidine) 20 Mg Tablet 1.5 Tab PO DAILY Hydrocodone-Apap 5-325 (Hydrocodone Bit/Acetaminophen) 1 Each Tablet 1-2 Tab PO Q4-6HRS Prozac (Fluoxetine Hcl) 10 Mg Capsule 10 Mg PO DAILY Symbicort 160-4.5 Mcg Inhaler (Budesonide/Formoterol Fumarate) 10.2 Gm Hfa.aer.ad 10.2 Gm IH DAILY Vitals/I & O Vital Sign - Last 24 Hours 05/15/18 05/15/18 05/15/18 05/15/18 14:01 14:45 14:54 15:26 Temp 97.7 97.7 Pulse 78 73 Resp 16 18 14 B/P (MAP) 140/74 (96) Pulse Ox 98 98 99 O2 Delivery Room Air Room Air Nasal Cannula O2 Flow Rate 2.0 05/15/18 05/15/18 05/15/18 05/15/18 15:27 15:49 16:01 16:16 Pulse 53 70 64 62 B/P (MAP) 116/66 (83) 144/53 (83) 142/44 (76) 129/46 (73) Pulse Ox 98 05/15/18 05/15/18 05/15/18 05/15/18 16:31 16:46 17:17 17:46 Pulse 65 67 66 68 B/P (MAP) 132/52 (78) 133/57 (82) 135/54 (81) 126/46 (72) 05/15/18 05/15/18 05/15/18 05/15/18 19:00 19:53 19:54 20:00 Temp 97.9 97.9 Pulse 84 Resp 16 B/P (MAP) 101/48 (65) Pulse Ox 98 95 95 O2 Delivery Room Air Nasal Cannula Nasal Cannula Room Air O2 Flow Rate 2.0 2.0 2.0 05/15/18 05/15/18 05/15/18 05/16/18 20:49 21:51 23:00 03:00 Temp 97.9 97.7 97.9 97.7 Pulse 72 84 Resp 18 18 16 16 B/P (MAP) 133/47 (75) 136/64 (88) Pulse Ox 95 97 O2 Delivery Room Air Room Air Room Air O2 Flow Rate 2.0 05/16/18 05/16/18 05/16/18 05/16/18 07:00 10:03 10:07 10:43 Temp 98.6 98.0 98.6 98.0 Pulse 68 68 87 Resp 16 17 B/P (MAP) 149/63 (91) 149/63 144/75 (98) Pulse Ox 95 95 O2 Delivery Room Air Room Air Room Air 05/16/18 05/16/18 11:03 12:37 O2 Delivery Room Air Room Air Intake and Output 05/15/18 05/15/18 05/16/18 15:00 23:00 07:00 Intake Total 120 ml 0 ml Balance 120 ml 0 ml SONG GALARZA MD May 16, 2018 13:21
[2018-05-16 14:26] VITALS: BP 117/61
[2018-05-16] MEDS: ENOXAPARIN 40 MG/0.4 ML SYRINGE. SQ SCH (16:00)
[2018-05-16] MEDS: BISACODYL 5 MG TABLET.DR. PO PRN (16:32)
[2018-05-16 19:00] VITALS: BP 135/57
[2018-05-16] MEDS: ATORVASTATIN CALCIUM 10 MG TABLET. PO SCH (21:40)
[2018-05-16 23:00] VITALS: BP 140/58
[2018-05-17 03:00] VITALS: BP 135/58
[2018-05-17] MEDS: BUDESONIDE 0.5 MG/2 ML NEBU. NEB SCH (06:51)
[2018-05-17] MEDS: ALBUTEROL SULFATE 2.5 MG/3 ML NEBU. NEB SCH ×3 (06:51→12:00)
[2018-05-17 07:00] VITALS: BP 142/63
[2018-05-17] MEDS ORDERED: BISACODYL 5 MG TABLET.DR. PO SCH (09:00)
[2018-05-17] MEDS ORDERED: FAMOTIDINE 20 MG TABLET. PO SCH (09:00)
[2018-05-17] MEDS: POLYETHYLENE GLYCOL 3350 17 GM PACKET. PO SCH (09:00)
[2018-05-17] MEDS: MAGNESIUM HYDROXIDE 2,400 MG/30 ML ORAL.SUSP. PO SCH (09:20)
[2018-05-17] MEDS: DOCUSATE SODIUM 100 MG CAPSULE. PO SCH (09:21)
[2018-05-17] MEDS: FLUoxetine HCL 10 MG CAPSULE PO SCH (09:21)
[2018-05-17] MEDS: SENNOSIDES/DOCUSATE 8.6/50MG TABLET. PO SCH (09:22)
[2018-05-17 09:23] VITALS: BP 143/63
[2018-05-17] MEDS ORDERED: HYDR-2758 PO (11:49)
--- NOTE | 2018-05-17 14:25 | PDOC3 ---
Discharge Summary [facility] Date of Admission: May 13, 2018 Discharge Date: May 17, 2018 Admitting Diagnosis lower back pain with compressive t12 fx s/p kyphoplasty pafib anxiety depression. HLD constipation copd stable Final Diagnosis CONSULTS dr Mathews Brief Hospital Course Ms. Bello is a 87 old With afib, wo meds for it, came for lower back pain. She fell and chuyita to [facility] for it and dced home wo intervention. pt came since more lower back pain. did Kyphoplasty, pain better on 2nd day. dc home. noticed my colleague add cardizem and lipitor pt doesnot take them at home. She said she has intermittent palpitation as baseline. Vitals charted in computer didnot show tachycaridia . pt has appt with PCP tmr, will defer to tmr. dc time 35min. Physical Exam lower back tenderness General: Alert, Oriented X3, Cooperative, moderate distress Heart: Regular rate, Normal S1 Lungs: Clear Abdomen: Normal bowel sounds, Soft Extremities: No clubbing, No cyanosis Patient History: FH: leukemia 32 MOTHER G8 SISTER FH: lymphoma G8 BROTHER FH: ovarian cancer G8 SISTER Disposition home CONDITION AT DISCHARGE: Improved Scheduled Budesonide/Formoterol Fumarate (Symbicort 160-4.5 Mcg Inhaler), 10.2 GM IH DAILY , (Reported) Famotidine (Pepcid), 1.5 TAB PO DAILY, (Reported) Fluoxetine Hcl (Prozac), 10 MG PO DAILY, (Reported) Hydrocodone Bit/Acetaminophen (Hydrocodone-Apap 5-325 ), 1-2 TAB PO Q4-6HRS Scheduled PRN Bisacodyl (Dulcolax), 2 TAB PO BID PRN for CONSTIPATION, (Reported) SONG GALARZA MD May 17, 2018 14:25
== END 2018-05-17 13:03 | disposition home or self-care (01) | DRG 516 ==
LOC: ER 15:48 → 4 NORTH 19:20
PROVIDERS: ADMIT Internal Medicine; ATTEND Internal Medicine
PROC: 0PS43ZZ Reposition Thoracic Vertebra, Percutaneous Approach (ICD-10-PCS; principal; 2018-05-15)
PROC: 0PU43JZ Supplement Thoracic Vertebra with Synthetic Substitute, Percutaneous Approach (ICD-10-PCS; 2018-05-15)
DX: M48.54XA Collapsed vertebra, not elsewhere classified, thoracic region, initial encounter for fracture (principal); E87.1 Hypo-osmolality and hyponatremia; M51.36 Other intervertebral disc degeneration, lumbar region; M47.26 Other spondylosis with radiculopathy, lumbar region; I48.91 Unspecified atrial fibrillation; F41.8 Other specified anxiety disorders; E78.00 Pure hypercholesterolemia, unspecified; Z96.649 Presence of unspecified artificial hip joint; E78.5 Hyperlipidemia, unspecified; J44.9 Chronic obstructive pulmonary disease, unspecified; R26.9 Unspecified abnormalities of gait and mobility; K59.00 Constipation, unspecified; I48.0 Paroxysmal atrial fibrillation; Z96.651 Presence of right artificial knee joint; Z80.6 Family history of leukemia; Z90.710 Acquired absence of both cervix and uterus; Z88.8 Allergy status to other drugs, medicaments and biological substances; Z82.49 Family history of ischemic heart disease and other diseases of the circulatory system; Z80.41 Family history of malignant neoplasm of ovary; Z80.8 Family history of malignant neoplasm of other organs or systems
CPT/HCPCS: 22513; 36415; 72146; 72148; 80048; 80053; 81001; 85025; 85610; 94640; 94760; 96374; 96375; 96376; 99152; 99153; C1725; C1892; J0690; J2250; J2270; J2405; J3010; J7613; J7626; 99285-25

== ENCOUNTER → 2018-06-26 | Outpatient (CLI) | payer MEDICARE ==
--- NOTE | 2018-06-26 14:07 | KCIC ---
MRI Brain without contrast History: New onset visual hallucinations Technique: Multiplanar, multisequential noncontrast MR imaging was performed of the brain. Contrast: None Comparison: None Findings: There is no evidence of recent infarct or cytotoxic edema. Ventricular size is considered within normal limits at. There is mild supratentorial involutional change not unexpected for the patient's age.There is no significant midline shift, intraaxial mass effect, or focal abnormal extra-axial fluid collection. There is multifocal moderate T2 and FLAIR hyperintense abnormality of the supratentorial white matter bilaterally, also foci of the bilateral basal ganglia. 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 There is no significant hemosiderin deposition of the brain parenchyma. There is preservation of the major intracranial flow-voids at the skull base. The mastoid air cells are aerated. The cerebellar tonsils are normal in location. There is no significant abnormality of the pineal gland or pituitary gland. Frontal sinus is not significantly pneumatized. There is negligible patchy ethmoid air cell mucosal thickening. There is preserved marrow signal of the clivus. There has been lens surgery bilaterally. Impression: 1. There is no evidence of recent infarct or intracranial mass effect. Multifocal T2 and FLAIR hyperintense abnormality of the supratentorial parenchyma and minimally of the mukesh is nonspecific although most commonly due to chronic microvascular ischemic disease in a patient this age. 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 Electronically signed by: Jimmy Will MD (06/26/2018 2:04 PM) [facility]-KCIC[facility]
== END | disposition home or self-care (01) ==
LOC: KCIC MRI 13:07
DX: I63.81 Other cerebral infarction due to occlusion or stenosis of small artery (principal)
CPT/HCPCS: 70551

== ENCOUNTER → 2018-08-31 | Outpatient (CLI) | payer MEDICARE ==
[~2018-08-31] MED LIST changes: -DILT120C80 PO; +DILT120C85 PO; -HYDR-2758 PO; +HYDR-2761 PO
--- NOTE | 2018-09-01 14:28 | SLEEP ---
DATE OF STUDY: 08/31/2018 OBJECTIVE: The patient is an 87-year-old female with excessive somnolence and nocturnal hallucinations. Height 63 inches, weight 153 pounds, body mass index 27.1. [place] sleep score in my office was 11 and in the hospital was 6. INTERPRETATION: The apnea-hypopnea index is 11.4 events per hour of sleep, mostly obstructive and mixed apneas. The total number of events was 157. The minimum desaturation is 78%. The highest heart rate was 231 beats per minute. Snoring occurred 16.5% of the time. IMPRESSION: Abnormal home polysomnogram showing obstructive sleep apnea as well as some central and mixed apnea. RECOMMENDATIONS: The patient will follow up in my clinic and I will before then attempt to arrange for a variable CPAP as a trial. Thank you for letting us help with the patient's care. CONCEPCION BAGLEY MD DR: STEVO/romana JOB#: [id number] / [id number] Jade Pyle
== END | disposition home or self-care (01) ==
LOC: RT 07:53
PROVIDERS: ATTEND Psychiatry & Neurology Neurology with Special Qualifications in Child Neurology
DX: G47.33 Obstructive sleep apnea (adult) (pediatric) (principal)
CPT/HCPCS: G0399

== ENCOUNTER → 2018-09-21 | Outpatient (CLI) | payer MEDICARE ==
--- NOTE | 2018-09-25 09:42 | SLEEP ---
DATE OF STUDY: 09/21/2018 OBJECTIVE: The patient is an 87-year-old female, previously studied on 08/31/2018, showing apnea-hypopnea index of 11.4 events per hour of sleep. The patient is here for CPAP titration. Height 5 feet 3 inches, weight 153 pounds, body mass index 27. INTERPRETATION: Sleep architecture is characterized by sleep efficiency of 88% across the 7.7 hours of recording time. There is absence of REM sleep. The sleep onset is 18 minutes. A total of 51 respiratory events are recorded on CPAP titration study with a minimum oxygen saturation of 89%. CPAP titration was successful at 11 cm using a Respironics DreamWear nasal cushion, small size. Periodic limb movements of sleep occur at the rate of 100 per hour, 10 per hour associated with arousal. No significant cardiac arrhythmias are observed. IMPRESSION: Successful CPAP titration using the above settings. RECOMMENDATIONS: My office will attempt to arrange this setting for the patient and the patient will follow up. Thank you for letting us help with the patient's care. CONCEPCION BAGLEY MD DR: STEVO/romana JOB#: [id number] / [id number] yossi PALMER DR
== END | disposition home or self-care (01) ==
LOC: RT 19:18
PROVIDERS: ATTEND Psychiatry & Neurology Neurology with Special Qualifications in Child Neurology
DX: G47.33 Obstructive sleep apnea (adult) (pediatric) (principal); G47.61 Periodic limb movement disorder
CPT/HCPCS: 95811

== ENCOUNTER 2018-10-25 00:23 | Inpatient (IN) | payer MEDICARE ==
[~2018-10-25] VITALS: Ht 157.5 cm; Wt 69.5 kg
[2018-10-25 00:51] LABS: BASO # 0.1 x10^3/uL (0.0-0.2); BASO % 1 % (0-3); EOS % 1 % (0-3); HEMOGLOBIN 13.6 g/dL (12.0-15.5); LYMPH # 2.1 x10^3/uL (1.0-4.8); LYMPH % 25 % (24-48); MEAN CORPUSCULAR HEMOGLOBIN 30 pg (25-35); MEAN CORPUSCULAR HGB CONC 33 g/dL (31-37); MEAN CORPUSCULAR VOLUME 89 fL (79-100); MONO # 0.6 x10^3/uL (0.0-1.1); MONO % 7 % (0-9); NEUT # 5.8 x10^3uL (1.8-7.7); NEUT % 67 % (31-73); PLATELET COUNT 313 x10^3/uL (140-400); RED CELL DISTRIBUTION WIDTH 13.8 % (11.5-14.5); WHITE BLOOD COUNT 8.6 x10^3/uL (4.0-11.0)
[2018-10-25] MEDS ORDERED: NITROGLYCERIN OINT 1 GM PACKET. TP ONE ×2 (01:00→01:30)
[2018-10-25 01:02] LABS: CALCIUM 9.3 mg/dL (8.5-10.1); CREATININE 0.7 mg/dL (0.6-1.0); GFR 79.5; POTASSIUM 3.9 mmol/L (3.5-5.1)
[2018-10-25 01:07] LABS: ALBUMIN/GLOBULIN RATIO 0.9 (1.0-1.7); MAGNESIUM 2.4 mg/dL (1.8-2.4); TOTAL BILIRUBIN 0.2 mg/dL (0.2-1.0); TOTAL PROTEIN 8.3 g/dL (6.4-8.2)
[2018-10-25 01:16] LABS: CREATINE KINASE 57 U/L (26-192)
[2018-10-25 01:23] LABS: PROTHROMBIN TIME PATIENT 12.3 SEC (11.7-14.0)
--- NOTE | 2018-10-25 01:35 | RAD ---
Two-view chest dated 10/25/2018. Comparison made to 11/12/2015. CLINICAL INDICATION: Chest pain. FINDINGS: PA and lateral views obtained. Heart and mediastinal contours are stable. Lungs are clear. No consolidation or pleural effusion. There are a few scattered calcified granuloma. IMPRESSION: No acute radiographic abnormality. Stable findings compared to 11/12/2015. Electronically signed by: Gray Shukla MD (10/25/2018 1:32 AM) [facility]
[2018-10-25] MEDS ORDERED: fentaNYL PF VIAL 100 MCG/2 ML VIAL IV PRN (01:45)
[2018-10-25] MEDS ORDERED: ONDANSETRON PF 4 MG/2 ML VIAL. IV PRN (01:45)
--- NOTE | 2018-10-25 01:50 | PHYS DOC ---
Past Medical History Past Medical History: A-Fib, Anxiety, Depression, High Cholesterol, Other Additional Past Medical Histor: emphysema Past Surgical History: Hip Replacement, Hysterectomy, Other Additional Past Surgical Histo: wrist, heart ablation, right knee replacement Additional Information: Nonsmoker Alcohol Use: None Drug Use: None Adult General Chief Complaint Chief Complaint: CHEST PAIN HPI HPI Patient is an 87 yo female with A-Fib who presents to the ED with right sided chest pain that radiates into her right arm that began 2 hours prior to presentation. The pain was an 8/10 when it started. The pain is currently a 5/ 10 and she describes it as a dull pain. She also reports a history of GERD and that her reflux symptoms have worsened over the last two days. She denies any nausea, vomiting, fever, or chills. Denies trauma. Denies cough. Denies fever/ chills. Cardiac risk factors include hyperchol. Denies hx or family history of DVT/PE. Review of Systems Review of Systems Constitutional: Denies fever or chills [] Eyes: Denies change in visual acuity, redness, or eye pain [] HENT: Denies nasal congestion or sore throat [] Respiratory: Denies cough or shortness of breath [] Cardiovascular: Right sided chest pain. No palpitations. [] GI: Denies abdominal pain, nausea, vomiting, or diarrhea [] : Denies dysuria or hematuria [] Musculoskeletal: Denies back pain or joint pain [] Integument: Denies rash or skin lesions [] Neurologic: Denies headache, focal weakness or sensory changes [] Complete systems were reviewed and found to be within normal limits, except as documented in this note. Current Medications Current Medications Current Medications Medications (Trade) Dose Ordered Sig/[facility] Start Time Stop Time Status Last Admin Dose Admin Fentanyl Citrate (Fentanyl 2ml Vial) 25 mcg PRN Q2HRS PRN 10/25/18 01:45 Nitroglycerin (Nitro-Bid Oint) 0.5 inch 1X ONCE 10/25/18 01:30 10/25/18 01:31 DC 10/25/18 01:21 0.5 INCH Ondansetron HCl (Zofran) 4 mg PRN Q8HRS PRN 10/25/18 01:45 10/26/18 01:44 Allergies Allergies Allergies Coded Allergies Type Severity Reaction Last Updated Verified phenobarbital Allergy Intermediate Itching 10/25/18 Yes Physical Exam Physical Exam Constitutional: Well developed, well nourished, no acute distress, non-toxic appearance. [] HENT: Normocephalic, atraumatic, oropharynx moist Eyes: PERRL, EOMI, conjunctiva normal, no discharge. [] Neck: Normal range of motion, no tenderness, supple, no stridor. [] Cardiovascular:Heart rate regular rhythm, no murmur [] Lungs & Thorax: Bilateral breath sounds clear to auscultation [] Abdomen: Soft, no tenderness Skin: Warm, dry, no erythema, no rash. [] Back: No tenderness, no CVA tenderness. [] Extremities: No tenderness, ROM intact, no edema. [] Neurologic: Alert and oriented X 3, no focal deficits noted. [] Psychologic: Affect normal, judgement normal, mood normal. [] Current Patient Data Vital Signs Vital Signs Date Time Temp Pulse Resp B/P (MAP) Pulse Ox O2 Delivery O2 Flow Rate FiO2 10/25/18 02:00 64 22 174/80 (111) 98 Room Air 10/25/18 00:33 97.7 97.7 Lab Values Laboratory Tests Test 10/25/18 00:35 10/25/18 02:00 White Blood Count 8.6 x10^3/uL (4.0-11.0) Red Blood Count 4.60 x10^6/uL (3.50-5.40) Hemoglobin 13.6 g/dL (12.0-15.5) Hematocrit 41.0 % (36.0-47.0) Mean Corpuscular Volume 89 fL (79-100) Mean Corpuscular Hemoglobin 30 pg (25-35) Mean Corpuscular Hemoglobin Concent 33 g/dL (31-37) Red Cell Distribution Width 13.8 % (11.5-14.5) Platelet Count 313 x10^3/uL (140-400) Neutrophils (%) (Auto) 67 % (31-73) Lymphocytes (%) (Auto) 25 % (24-48) Monocytes (%) (Auto) 7 % (0-9) Eosinophils (%) (Auto) 1 % (0-3) Basophils (%) (Auto) 1 % (0-3) Neutrophils # (Auto) 5.8 x10^3uL (1.8-7.7) Lymphocytes # (Auto) 2.1 x10^3/uL (1.0-4.8) Monocytes # (Auto) 0.6 x10^3/uL (0.0-1.1) Eosinophils # (Auto) 0.0 x10^3/uL (0.0-0.7) Basophils # (Auto) 0.1 x10^3/uL (0.0-0.2) Prothrombin Time 12.3 SEC (11.7-14.0) Prothrombin Time INR 0.9 (0.8-1.1) Sodium Level 138 mmol/L (136-145) Potassium Level 3.9 mmol/L (3.5-5.1) Chloride Level 100 mmol/L (98-107) Carbon Dioxide Level 29 mmol/L (21-32) Anion Gap 9 (6-14) Blood Urea Nitrogen 17 mg/dL (7-20) Creatinine 0.7 mg/dL (0.6-1.0) Estimated GFR (Cockcroft-Gault) 79.5 BUN/Creatinine Ratio 24 (6-20) H Glucose Level 115 mg/dL (70-99) H Calcium Level 9.3 mg/dL (8.5-10.1) Magnesium Level 2.4 mg/dL (1.8-2.4) Total Bilirubin 0.2 mg/dL (0.2-1.0) Aspartate Amino Transferase (AST) 10 U/L (15-37) L Alanine Aminotransferase (ALT) 12 U/L (14-59) L Alkaline Phosphatase 73 U/L (46-116) Creatine Kinase 57 U/L (26-192) Creatine Kinase MB (Mass) 1.0 ng/mL (0.0-3.6) Creatine Kinase MB Relative Index % (0-4) Troponin I Quantitative < 0.017 ng/mL (0.000-0.055) HZ-Mna-D-Type Natriuretic Peptide 301 pg/mL (0-449) Total Protein 8.3 g/dL (6.4-8.2) H Albumin 4.0 g/dL (3.4-5.0) Albumin/Globulin Ratio 0.9 (1.0-1.7) L Lipase 171 U/L (73-393) Urine Collection Type Unknown Urine Color Yellow Urine Clarity Clear Urine pH 7.0 Urine Specific [place] 1.010 Urine Protein Negative mg/dL (NEG-TRACE) Urine Glucose (UA) Negative mg/dL (NEG) Urine Ketones (Stick) Negative mg/dL (NEG) Urine Blood Small (NEG) Urine Nitrite Negative (NEG) Urine Bilirubin Negative (NEG) Urine Urobilinogen Dipstick 0.2 mg/dL (0.2 mg/dL) Urine Leukocyte Esterase Negative (NEG) Urine RBC 3-5 /HPF (0-2) Urine WBC 1-4 /HPF (0-4) Urine Squamous Epithelial Cells Few /LPF Urine Bacteria 0 /HPF (0-FEW) Urine Mucus Slight /LPF Laboratory Tests 10/25/18 00:35 Laboratory Tests 10/25/18 00:35 EKG EKG @00:27 Sinus Rhythm at [address] elevations. Slight ST depression in V5, V6. Radiology/Procedures Radiology/Procedures PROCEDURE: CHEST PA & LATERAL Two-view chest dated 10/25/2018. Comparison made to 11/12/2015. CLINICAL INDICATION: Chest pain. FINDINGS: PA and lateral views obtained. Heart and mediastinal contours are stable. Lungs are clear. No consolidation or pleural effusion. There are a few scattered calcified granuloma. IMPRESSION: No acute radiographic abnormality. Stable findings compared to 11/12/2015. Electronically signed by: Brie Shukla MD (10/25/2018 1:32 AM) [facility] Course & Med Decision Making Course & Med Decision Making Ms. Bello is an 87 yo female who presents with right sided chest pain that radiates in to her right arm and neck. 12-lead EKG showed sinus rhythm with no ST elevations. initial troponin was within normal limits. CXR showed no abnormalities or changes from most recent, previous film. Routine labs were largely benign. Nitroglycerin ointment was applied. Fentanyl administered for pain. HEART score 4. Patient requiring admission for further evaluation and treatment. Discussed with Dr. Waddell (hospitalist) who is in agreement with admission. Discussed findings and plan with patient and family, who acknowledge understanding and agreement. Dragon Disclaimer Dragon Disclaimer This electronic medical record was generated, in whole or in part, using a voice recognition dictation system. Departure Departure Impression: Primary Impression: Chest pain Disposition: ADMITTED INPATIENT Admitting Physician: Heather Waddell Condition: STABLE Referrals: BETZY PALMER MD (PCP) Problem Qualifiers Primary Impression: Chest pain Chest pain type: unspecified Qualified Codes: R07.9 - Chest pain, unspecified BREI CAPONE DO Oct 25, 2018 01:50
[2018-10-25 02:10] LABS: BILIRUBIN,URINE NEGATIVE (NEG); CLARITY,URINE CLEAR; COLOR,URINE YELLOW; NITRITE,URINE NEGATIVE (NEG); PROTEIN,URINE NEGATIVE (NEG-TRACE); UROBILINOGEN,URINE 0.2 mg/dL (0.2 mg/dL)
[2018-10-25 02:20] LABS: BACTERIA,URINE 0 /HPF (0-FEW); SQUAMOUS EPITHELIAL CELL,UR FEW /LPF
[2018-10-25 03:29] VITALS: BP 159/81
[2018-10-25] MEDS ORDERED: ESOM20CA PO (06:21)
[2018-10-25] MEDS ORDERED: LORA0.5T PO (06:21)
[2018-10-25 07:13] VITALS: BP 169/73
[2018-10-25] MEDS ORDERED: BISACODYL 5 MG TABLET.DR. PO PRN (08:30)
[2018-10-25] MEDS ORDERED: LORazepam 0.5 MG TABLET PO PRN (08:30)
[2018-10-25] MEDS: ALBUTEROL SULFATE 2.5 MG/3 ML NEBU. NEB SCH ×2 (09:00→20:11)
[2018-10-25] MEDS ORDERED: ALBUTEROL SULFATE 2.5 MG/3 ML NEBU. NEB SCH (09:00)
[2018-10-25] MEDS ORDERED: NON FORMULARY ITEM (Budesonide/Formoterol Fumarate (Symbicort 160-4.5 Mcg Inhaler) 10.2 GM IH SCH (09:00)
[2018-10-25] MEDS: BUDESONIDE 0.5 MG/2 ML NEBU. NEB SCH ×2 (09:00→20:11)
--- NOTE | 2018-10-25 09:17 | PDOC2 ---
CONSULT Date of Consult Date of Consult DATE: 10/25/18 TIME: 09:12 Reason for Consult Reason for Consult: Chest pain Referring Physician Referring Physician: Dr. matthew Identification/Chief Complaint Chief Complaint Chest pain Source Source: Chart review, Patient History of Present Illness Reason for Visit: Patient is a pleasant 87-year-old female with a history of atrial fibrillation and hypertension who presented to the emergency room for episodes of chest discomfort. This pain occurred in the right side of her chest and had been present for one to 2 days. Her EKG shows no acute ischemic changes. Troponins are been normal 2. Chest x-ray also shows no acute changes. The patient had a normal MPI test in 2016. She also has a history of gastroesophageal reflux disease. She is now resting comfortably in bed. Past Medical History Cardiovascular: AFIB, HTN Pulmonary: COPD Renal/: No pertinent hx Past Surgical History Past Surgical History: Hysterectomy, Other (left hip replacement. Right knee replacement.) Family History Family History: High Cholestrol, Hypertension Social History No ALCOHOL: none Drugs: None Current Problem List Problem List Problems Medical Problems: (1) Chest pain Status: Acute Current Medications Current Medications Current Medications Nitroglycerin (Nitro-Bid Oint) 1 inch 1X ONCE TP ; Start 10/25/18 at 01:00; Stop 10/25/18 at 01:07; Status DC Nitroglycerin (Nitro-Bid Oint) 0.5 inch 1X ONCE TP Last administered on at 01:21; Start 10/25/18 at 01:30; Stop 10/25/18 at 01:31; Status DC Ondansetron HCl (Zofran) 4 mg PRN Q8HRS PRN IV NAUSEA/VOMITING 1ST CHOICE; Start 10/25/18 at 01:45; Stop 10/26/18 at 01:44 Fentanyl Citrate (Fentanyl 2ml Vial) 25 mcg PRN Q2HRS PRN IV SEVERE PAIN; Start 10/25/18 at 01:45 Bisacodyl (Dulcolax Tab) 10 mg PRN BID PRN PO CONSTIPATION; Start 10/25/18 at 08 :30 Fluoxetine HCl (PROzac) 10 mg DAILY PO ; Start 10/25/18 at 09:00 Lorazepam (Ativan) 0.5 mg PRN Q8HRS PRN PO ANXIETY / AGITATION; Start 10/25/18 at 08:30 Non-Formulary Medication (Budesonide/ Formoterol Fumarate (Symbicort 160-4.5 Mcg Inhaler)) 10.2 gm DAILY IH ; Start 10/25/18 at 09:00; Status UNV Pantoprazole Sodium (Protonix) 40 mg DAILYAC PO ; Start 10/25/18 at 09:00 Budesonide (Pulmicort) 0.5 mg RTBID NEB ; Start 10/25/18 at 09:00 Albuterol Sulfate (Ventolin Neb Soln) 2.5 mg RTQID NEB ; Start 10/25/18 at 09:00 ; Stop 10/25/18 at 09:00; Status DC Albuterol Sulfate (Ventolin Neb Soln) 2.5 mg RTBID NEB ; Start 10/25/18 at 09:00 Docusate Sodium (Colace) 200 mg DAILY PO ; Start 10/25/18 at 09:00 Active Scripts Active Hydrocodone-Apap 5-325 (Hydrocodone Bit/Acetaminophen) 1 Each Tablet 1-2 Tab PO Q4-6HRS Reported Lorazepam 0.5 Mg Tablet 0.5 Mg PO PRN Q8HRS PRN Nexium Capsule (Esomeprazole Magnesium) 20 Mg Capsule.dr 20 Mg PO DAILYAC Dulcolax (Bisacodyl) 5 Mg Tablet.dr 2 Tab PO BID PRN Prozac (Fluoxetine Hcl) 10 Mg Capsule 10 Mg PO DAILY Symbicort 160-4.5 Mcg Inhaler (Budesonide/Formoterol Fumarate) 10.2 Gm Hfa.aer.ad 10.2 Gm IH DAILY Allergies Allergies: Coded Allergies: phenobarbital (Verified Allergy, Intermediate, Itching, 10/25/18) HIVES ROS Cardiovascular: yes Chest Pain Gastrointestinal: Yes Other (epigastric discomfort) Physical Exam General: No acute distress HEENT: Atraumatic Lungs: Clear to auscultation Heart: Other (irregular rhythm) Abdomen: Normal bowel sounds Vitals VITALS Vital Signs Date Time Temp Pulse Resp B/P (MAP) Pulse Ox O2 Delivery O2 Flow Rate FiO2 10/25/18 07:49 Room Air 10/25/18 07:13 98.0 67 18 169/73 (105) 97 98.0 Labs Labs Laboratory Tests Test 10/25/18 00:35 10/25/18 02:00 10/25/18 04:15 White Blood Count 8.6 x10^3/uL (4.0-11.0) Red Blood Count 4.60 x10^6/uL (3.50-5.40) Hemoglobin 13.6 g/dL (12.0-15.5) Hematocrit 41.0 % (36.0-47.0) Mean Corpuscular Volume 89 fL (79-100) Mean Corpuscular Hemoglobin 30 pg (25-35) Mean Corpuscular Hemoglobin Concent 33 g/dL (31-37) Red Cell Distribution Width 13.8 % (11.5-14.5) Platelet Count 313 x10^3/uL (140-400) Neutrophils (%) (Auto) 67 % (31-73) Lymphocytes (%) (Auto) 25 % (24-48) Monocytes (%) (Auto) 7 % (0-9) Eosinophils (%) (Auto) 1 % (0-3) Basophils (%) (Auto) 1 % (0-3) Neutrophils # (Auto) 5.8 x10^3uL (1.8-7.7) Lymphocytes # (Auto) 2.1 x10^3/uL (1.0-4.8) Monocytes # (Auto) 0.6 x10^3/uL (0.0-1.1) Eosinophils # (Auto) 0.0 x10^3/uL (0.0-0.7) Basophils # (Auto) 0.1 x10^3/uL (0.0-0.2) Prothrombin Time 12.3 SEC (11.7-14.0) Prothromb Time International Ratio 0.9 (0.8-1.1) Sodium Level 138 mmol/L (136-145) Potassium Level 3.9 mmol/L (3.5-5.1) Chloride Level 100 mmol/L (98-107) Carbon Dioxide Level 29 mmol/L (21-32) Anion Gap 9 (6-14) Blood Urea Nitrogen 17 mg/dL (7-20) Creatinine 0.7 mg/dL (0.6-1.0) Estimated GFR (Cockcroft-Gault) 79.5 BUN/Creatinine Ratio 24 (6-20) Glucose Level 115 mg/dL (70-99) Calcium Level 9.3 mg/dL (8.5-10.1) Magnesium Level 2.4 mg/dL (1.8-2.4) Total Bilirubin 0.2 mg/dL (0.2-1.0) Aspartate Amino Transf (AST/SGOT) 10 U/L (15-37) Alanine Aminotransferase (ALT/SGPT) 12 U/L (14-59) Alkaline Phosphatase 73 U/L (46-116) Creatine Kinase 57 U/L (26-192) Creatine Kinase MB (Mass) 1.0 ng/mL (0.0-3.6) Creatine Kinase MB Relative Index % (0-4) Troponin I Quantitative < 0.017 ng/mL (0.000-0.055) < 0.017 ng/mL (0.000-0.055) SG-Ddq-P-Type Natriuretic Peptide 301 pg/mL (0-449) Total Protein 8.3 g/dL (6.4-8.2) Albumin 4.0 g/dL (3.4-5.0) Albumin/Globulin Ratio 0.9 (1.0-1.7) Lipase 171 U/L (73-393) Urine Collection Type Unknown Urine Color Yellow Urine Clarity Clear Urine pH 7.0 Urine Specific [place] 1.010 Urine Protein Negative mg/dL (NEG-TRACE) Urine Glucose (UA) Negative mg/dL (NEG) Urine Ketones (Stick) Negative mg/dL (NEG) Urine Blood Small (NEG) Urine Nitrite Negative (NEG) Urine Bilirubin Negative (NEG) Urine Urobilinogen Dipstick 0.2 mg/dL (0.2 mg/dL) Urine Leukocyte Esterase Negative (NEG) Urine RBC 3-5 /HPF (0-2) Urine WBC 1-4 /HPF (0-4) Urine Squamous Epithelial Cells Few /LPF Urine Bacteria 0 /HPF (0-FEW) Urine Mucus Slight /LPF Laboratory Tests Test 10/25/18 00:35 10/25/18 02:00 10/25/18 04:15 White Blood Count 8.6 x10^3/uL (4.0-11.0) Red Blood Count 4.60 x10^6/uL (3.50-5.40) Hemoglobin 13.6 g/dL (12.0-15.5) Hematocrit 41.0 % (36.0-47.0) Mean Corpuscular Volume 89 fL (79-100) Mean Corpuscular Hemoglobin 30 pg (25-35) Mean Corpuscular Hemoglobin Concent 33 g/dL (31-37) Red Cell Distribution Width 13.8 % (11.5-14.5) Platelet Count 313 x10^3/uL (140-400) Neutrophils (%) (Auto) 67 % (31-73) Lymphocytes (%) (Auto) 25 % (24-48) Monocytes (%) (Auto) 7 % (0-9) Eosinophils (%) (Auto) 1 % (0-3) Basophils (%) (Auto) 1 % (0-3) Neutrophils # (Auto) 5.8 x10^3uL (1.8-7.7) Lymphocytes # (Auto) 2.1 x10^3/uL (1.0-4.8) Monocytes # (Auto) 0.6 x10^3/uL (0.0-1.1) Eosinophils # (Auto) 0.0 x10^3/uL (0.0-0.7) Basophils # (Auto) 0.1 x10^3/uL (0.0-0.2) Prothrombin Time 12.3 SEC (11.7-14.0) Prothromb Time International Ratio 0.9 (0.8-1.1) Sodium Level 138 mmol/L (136-145) Potassium Level 3.9 mmol/L (3.5-5.1) Chloride Level 100 mmol/L (98-107) Carbon Dioxide Level 29 mmol/L (21-32) Anion Gap 9 (6-14) Blood Urea Nitrogen 17 mg/dL (7-20) Creatinine 0.7 mg/dL (0.6-1.0) Estimated GFR (Cockcroft-Gault) 79.5 BUN/Creatinine Ratio 24 (6-20) Glucose Level 115 mg/dL (70-99) Calcium Level 9.3 mg/dL (8.5-10.1) Magnesium Level 2.4 mg/dL (1.8-2.4) Total Bilirubin 0.2 mg/dL (0.2-1.0) Aspartate Amino Transf (AST/SGOT) 10 U/L (15-37) Alanine Aminotransferase (ALT/SGPT) 12 U/L (14-59) Alkaline Phosphatase 73 U/L (46-116) Creatine Kinase 57 U/L (26-192) Creatine Kinase MB (Mass) 1.0 ng/mL (0.0-3.6) Creatine Kinase MB Relative Index % (0-4) Troponin I Quantitative < 0.017 ng/mL (0.000-0.055) < 0.017 ng/mL (0.000-0.055) US-Emv-I-Type Natriuretic Peptide 301 pg/mL (0-449) Total Protein 8.3 g/dL (6.4-8.2) Albumin 4.0 g/dL (3.4-5.0) Albumin/Globulin Ratio 0.9 (1.0-1.7) Lipase 171 U/L (73-393) Urine Collection Type Unknown Urine Color Yellow Urine Clarity Clear Urine pH 7.0 Urine Specific [place] 1.010 Urine Protein Negative mg/dL (NEG-TRACE) Urine Glucose (UA) Negative mg/dL (NEG) Urine Ketones (Stick) Negative mg/dL (NEG) Urine Blood Small (NEG) Urine Nitrite Negative (NEG) Urine Bilirubin Negative (NEG) Urine Urobilinogen Dipstick 0.2 mg/dL (0.2 mg/dL) Urine Leukocyte Esterase Negative (NEG) Urine RBC 3-5 /HPF (0-2) Urine WBC 1-4 /HPF (0-4) Urine Squamous Epithelial Cells Few /LPF Urine Bacteria 0 /HPF (0-FEW) Urine Mucus Slight /LPF Images Images Chest x-ray shows no acute changes. Assessment/Plan Assessment/Plan 1. Chest pain. Patient's pain has improved. She has no acute ischemic EKG changes. Troponins have been normal 2. MPI testing in 2016 was normal. With recurrence of her discomfort. We will complete rule out and check MPI testing. 2. Gastroesophageal reflux disease. Continue baseline medications. 3. History of atrial fibrillation. Again will continue present medications. 4. Hypertension. Controlled. We'll continue to monitor. Thank you for allowing us to participate in the care of your patient. JUDY SIMMONS MD Oct 25, 2018 09:17
[2018-10-25] MEDS: PANTOPRAZOLE 40 MG TABLET.DR. PO SCH (09:21)
[2018-10-25] MEDS: FLUoxetine HCL 10 MG CAPSULE PO SCH (09:21)
[2018-10-25] MEDS: DOCUSATE SODIUM 100 MG CAPSULE. PO SCH (09:22)
[2018-10-25 11:00] VITALS: BP 140/70
[2018-10-25] MEDS: HYDROcodone/APAP 5/325MG 1 TAB TABLET PO PRN (11:35)
--- NOTE | 2018-10-25 13:41 | HP ---
ADMIT DATE: 10/25/2018 CHIEF COMPLAINT: Chest pain. HISTORY OF PRESENT ILLNESS: The patient is a pleasant 87-year-old female who presented to the ER with chest pain. She has known AFib and hyperlipidemia, but no previous known coronary artery disease that I am aware of. She has her heart ablation though. Basically, she rates her symptoms at 8/10, got better with aspirin, describes as dull. She denies any nausea or vomiting. I have discussed the case with the ER physician. We are admitting the patient to rule out coronary artery disease. We will be checking serial enzymes, serial EKGs, consulting Cardiology and doing a cardiac stress test. PAST MEDICAL HISTORY: AFib, anxiety, depression, hyperlipidemia, emphysema, hip replacement, hysterectomy, wrist surgery, cardiac ablation, right knee replacement. ALLERGIES: PHENOBARBITAL. FAMILY HISTORY: She denies any family history of coronary artery disease. SOCIAL HISTORY: She does not drink, smoke or take drugs. MEDICATIONS: Reviewed. She is on hydrocodone, Prozac, lorazepam, Symbicort, Dulcolax and Nexium. REVIEW OF SYSTEMS: GENERAL: No history of weight change, weakness or fevers. SKIN: No bruising, hair changes or rashes. EYES: No blurred, double or loss of vision. NOSE AND THROAT: No history of nosebleeds, hoarseness or sore throat. HEART: She complains of chest pain. LUNGS: Denies cough, hemoptysis, wheezing or shortness of breath. GASTROINTESTINAL: Denies changes in appetite, nausea, vomiting, diarrhea or constipation. GENITOURINARY: No history of frequency, urgency, hesitancy or nocturia. NEUROLOGIC: Denies history of numbness, tingling, tremor or weakness. PSYCHIATRIC: No history of panic, anxiety or depression. ENDOCRINE: No history of heat or cold intolerance, polyuria or polydipsia. EXTREMITIES: Denies muscle weakness, joint pain, pain on walking or stiffness. PHYSICAL EXAMINATION: VITAL SIGNS: Temperature 97, pulse 80, respirations 16, blood pressure 141/72, O2 sat 98% on room air. GENERAL: She is alert, cooperative, very pleasant. HEART: Normal S1, S2. LUNGS: Clear. ABDOMEN: Soft. EXTREMITIES: No edema. SKIN: No rash. ENDOCRINE: No thyromegaly. LYMPHATICS: No cervical nodes. HEMATOPOIETIC: No bruising. LABORATORY DATA: Hematology is normal. Electrolytes are normal. Glucose is 115, AST and ALT are low at 10 and 12 respectively. Troponin is 0. EKG shows AFib. Chest x-ray is negative. ASSESSMENT AND PLAN: Chest pain, rule out coronary artery disease. The patient has been admitted. We are checking serial enzymes, serial EKGs, cardiac monitoring, echocardiogram, consult Cardiology. I suspect she will need a myocardial perfusion imaging study in the morning. We will continue home meds, frequent labs, PT/OT, p.r.n. morphine. DVT prophylaxis, p.r.n. Zofran. RIGO MONAHAN DO DR: SASCHA/romana JOB#: [id number] / [id number]
[2018-10-25 15:00] VITALS: BP 135/74
[2018-10-25] MEDS ORDERED: ACETAMINOPHEN 325 MG TABLET. PO PRN (16:30)
[2018-10-25 19:35] VITALS: BP 134/70
[2018-10-25 23:00] VITALS: BP 140/78
[2018-10-26 03:25] VITALS: BP 124/69
[2018-10-26 07:00] VITALS: BP 160/72
[2018-10-26 07:25] LABS: BASO # 0.1 x10^3/uL (0.0-0.2); BASO % 1 % (0-3); EOS # 0.1 x10^3/uL (0.0-0.7); EOS % 1 % (0-3); HEMATOCRIT 42.2 % (36.0-47.0); HEMOGLOBIN 14.1 g/dL (12.0-15.5); LYMPH # 2.2 x10^3/uL (1.0-4.8); LYMPH % 27 % (24-48); MEAN CORPUSCULAR HEMOGLOBIN 30 pg (25-35); MEAN CORPUSCULAR HGB CONC 33 g/dL (31-37); MEAN CORPUSCULAR VOLUME 90 fL (79-100); MONO # 0.6 x10^3/uL (0.0-1.1); MONO % 7 % (0-9); NEUT # 5.4 x10^3uL (1.8-7.7); NEUT % 65 % (31-73); PLATELET COUNT 346 x10^3/uL (140-400); RED BLOOD COUNT 4.72 x10^6/uL (3.50-5.40); RED CELL DISTRIBUTION WIDTH 13.9 % (11.5-14.5); WHITE BLOOD COUNT 8.3 x10^3/uL (4.0-11.0)
[2018-10-26] MEDS: ALBUTEROL SULFATE 2.5 MG/3 ML NEBU. NEB SCH (07:28)
[2018-10-26] MEDS: BUDESONIDE 0.5 MG/2 ML NEBU. NEB SCH (07:28)
[2018-10-26 07:35] LABS: CALCIUM 9.2 mg/dL (8.5-10.1); CHOLESTEROL/HDL RATIO 4.4; CREATININE 0.7 mg/dL (0.6-1.0); GFR 79.5
--- NOTE | 2018-10-26 08:08 | EKG ---
[facility] [address] [place] [address] Test Date: 2018-10-25 Test Time: 00:27:45 Pat Name: RUDDY IZAGUIRRE Department: Room: 205 1 Gender: F Wincher: : 1930 Requested By: BRIE CAPONE Order Number: [id number] Reading MD: Titus Madden MD Measurements Intervals [place] Rate: 69 P: 16 [place]: 172 QRS: -8 QRSD: 76 T: 13 QT: 390 QTc: 419 Interpretive Statements SINUS RHYTHM Electronically Signed On 10-27-2018 6:59:08 [employer] by Titus Madden MD
[2018-10-26] MEDS ORDERED: REGADENOSON 0.4 MG/5 ML DISP.SYRIN. IV ONE (09:15)
[2018-10-26] MEDS: DOCUSATE SODIUM 100 MG CAPSULE. PO SCH (11:07)
[2018-10-26] MEDS: FLUoxetine HCL 10 MG CAPSULE PO SCH (11:07)
[2018-10-26] MEDS: PANTOPRAZOLE 40 MG TABLET.DR. PO SCH (11:08)
[2018-10-26] MEDS: HYDROcodone/APAP 5/325MG 1 TAB TABLET PO PRN (11:13)
--- NOTE | 2018-10-26 11:36 | NUR ---
SS following for discharge planning. SS reviewed pt chart. Pt is from home and currently on room air. Pt's family reports that pt will be moving in with daughter and is independent at home. No concerns noted. PT met with pt and signed off. Current disposition for discharge is home with family. SS will continue to follow for pending discharge needs.
--- NOTE | 2018-10-26 12:22 | PDOC ---
PROGRESS NOTES Chief Complaint Chief Complaint Chest pain Atrial fibrillation, s/p ablation HTN HLD Anxiety emphysema hip replacement R knee replacement History of Present Illness History of Present Illness Ms Camacho is an 87yo F, admitted for CP, PMH of Afib, HLD She was seen and examined this morning. 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 Pt in no acute distress with no current complaints Vitals Vitals Vital Signs Date Time Temp Pulse Resp B/P (MAP) Pulse Ox O2 Delivery O2 Flow Rate FiO2 10/26/18 11:13 20 98 Room Air 10/26/18 07:00 98.0 65 160/72 (101) 98.0 Physical Exam General: Alert, Cooperative, No acute distress Heart: Regular rate, No murmurs, Other (irregular rhythm) Lungs: Clear Abdomen: Normal bowel sounds, Soft Extremities: No clubbing, No cyanosis Skin: No rashes, No breakdown Labs LABS Laboratory Tests Test 10/26/18 06:45 White Blood Count 8.3 x10^3/uL (4.0-11.0) Red Blood Count 4.72 x10^6/uL (3.50-5.40) Hemoglobin 14.1 g/dL (12.0-15.5) Hematocrit 42.2 % (36.0-47.0) Mean Corpuscular Volume 90 fL (79-100) Mean Corpuscular Hemoglobin 30 pg (25-35) Mean Corpuscular Hemoglobin Concent 33 g/dL (31-37) Red Cell Distribution Width 13.9 % (11.5-14.5) Platelet Count 346 x10^3/uL (140-400) Neutrophils (%) (Auto) 65 % (31-73) Lymphocytes (%) (Auto) 27 % (24-48) Monocytes (%) (Auto) 7 % (0-9) Eosinophils (%) (Auto) 1 % (0-3) Basophils (%) (Auto) 1 % (0-3) Neutrophils # (Auto) 5.4 x10^3uL (1.8-7.7) Lymphocytes # (Auto) 2.2 x10^3/uL (1.0-4.8) Monocytes # (Auto) 0.6 x10^3/uL (0.0-1.1) Eosinophils # (Auto) 0.1 x10^3/uL (0.0-0.7) Basophils # (Auto) 0.1 x10^3/uL (0.0-0.2) Sodium Level 138 mmol/L (136-145) Potassium Level 4.0 mmol/L (3.5-5.1) Chloride Level 100 mmol/L (98-107) Carbon Dioxide Level 28 mmol/L (21-32) Anion Gap 10 (6-14) Blood Urea Nitrogen 12 mg/dL (7-20) Creatinine 0.7 mg/dL (0.6-1.0) Estimated GFR (Cockcroft-Gault) 79.5 Glucose Level 94 mg/dL (70-99) Calcium Level 9.2 mg/dL (8.5-10.1) Triglycerides Level 135 mg/dL (0-150) Cholesterol Level 292 mg/dL (0-200) LDL Cholesterol, Calculated 199 mg/dL (0-100) VLDL Cholesterol, Calculated 27 mg/dL (0-40) Non-HDL Cholesterol Calculated 226 mg/dL (0-129) HDL Cholesterol 66 mg/dL (40-60) Cholesterol/HDL Ratio 4.4 Review of Systems Review of Systems Pt denies CP, SOB, headache, dizziness, weakness Assessment and Plan Assessmemt and Plan Problems Medical Problems: (1) Chest pain Status: Acute Assessment: Chest pain Atrial fibrillation, s/p ablation HTN HLD Anxiety emphysema hip replacement R knee replacement Plan Cardiac monitoring trend cardiac enzymes trend ECGs MPI results pending prn morphine prn zofran DVT prophylaxis Cardiology consult, appreciate continued recs home meds routine labs PT/OT Comment Review of Relevant I have reviewed the following items jocelyn (where applicable) has been applied. Labs Laboratory Tests Test 10/25/18 00:35 10/25/18 02:00 10/25/18 04:15 10/25/18 07:47 White Blood Count 8.6 x10^3/uL (4.0-11.0) Red Blood Count 4.60 x10^6/uL (3.50-5.40) Hemoglobin 13.6 g/dL (12.0-15.5) Hematocrit 41.0 % (36.0-47.0) Mean Corpuscular Volume 89 fL (79-100) Mean Corpuscular Hemoglobin 30 pg (25-35) Mean Corpuscular Hemoglobin Concent 33 g/dL (31-37) Red Cell Distribution Width 13.8 % (11.5-14.5) Platelet Count 313 x10^3/uL (140-400) Neutrophils (%) (Auto) 67 % (31-73) Lymphocytes (%) (Auto) 25 % (24-48) Monocytes (%) (Auto) 7 % (0-9) Eosinophils (%) (Auto) 1 % (0-3) Basophils (%) (Auto) 1 % (0-3) Neutrophils # (Auto) 5.8 x10^3uL (1.8-7.7) Lymphocytes # (Auto) 2.1 x10^3/uL (1.0-4.8) Monocytes # (Auto) 0.6 x10^3/uL (0.0-1.1) Eosinophils # (Auto) 0.0 x10^3/uL (0.0-0.7) Basophils # (Auto) 0.1 x10^3/uL (0.0-0.2) Prothrombin Time 12.3 SEC (11.7-14.0) Prothromb Time International Ratio 0.9 (0.8-1.1) Sodium Level 138 mmol/L (136-145) Potassium Level 3.9 mmol/L (3.5-5.1) Chloride Level 100 mmol/L (98-107) Carbon Dioxide Level 29 mmol/L (21-32) Anion Gap 9 (6-14) Blood Urea Nitrogen 17 mg/dL (7-20) Creatinine 0.7 mg/dL (0.6-1.0) Estimated GFR (Cockcroft-Gault) 79.5 BUN/Creatinine Ratio 24 (6-20) Glucose Level 115 mg/dL (70-99) Calcium Level 9.3 mg/dL (8.5-10.1) Magnesium Level 2.4 mg/dL (1.8-2.4) Total Bilirubin 0.2 mg/dL (0.2-1.0) Aspartate Amino Transf (AST/SGOT) 10 U/L (15-37) Alanine Aminotransferase (ALT/SGPT) 12 U/L (14-59) Alkaline Phosphatase 73 U/L (46-116) Creatine Kinase 57 U/L (26-192) Creatine Kinase MB (Mass) 1.0 ng/mL (0.0-3.6) Creatine Kinase MB Relative Index % (0-4) Troponin I Quantitative < 0.017 ng/mL (0.000-0.055) < 0.017 ng/mL (0.000-0.055) < 0.017 ng/mL (0.000-0.055) UK-Wbk-C-Type Natriuretic Peptide 301 pg/mL (0-449) Total Protein 8.3 g/dL (6.4-8.2) Albumin 4.0 g/dL (3.4-5.0) Albumin/Globulin Ratio 0.9 (1.0-1.7) Lipase 171 U/L (73-393) Urine Collection Type Unknown Urine Color Yellow Urine Clarity Clear Urine pH 7.0 Urine Specific [place] 1.010 Urine Protein Negative mg/dL (NEG-TRACE) Urine Glucose (UA) Negative mg/dL (NEG) Urine Ketones (Stick) Negative mg/dL (NEG) Urine Blood Small (NEG) Urine Nitrite Negative (NEG) Urine Bilirubin Negative (NEG) Urine Urobilinogen Dipstick 0.2 mg/dL (0.2 mg/dL) Urine Leukocyte Esterase Negative (NEG) Urine RBC 3-5 /HPF (0-2) Urine WBC 1-4 /HPF (0-4) Urine Squamous Epithelial Cells Few /LPF Urine Bacteria 0 /HPF (0-FEW) Urine Mucus Slight /LPF Test 10/26/18 06:45 White Blood Count 8.3 x10^3/uL (4.0-11.0) Red Blood Count 4.72 x10^6/uL (3.50-5.40) Hemoglobin 14.1 g/dL (12.0-15.5) Hematocrit 42.2 % (36.0-47.0) Mean Corpuscular Volume 90 fL (79-100) Mean Corpuscular Hemoglobin 30 pg (25-35) Mean Corpuscular Hemoglobin Concent 33 g/dL (31-37) Red Cell Distribution Width 13.9 % (11.5-14.5) Platelet Count 346 x10^3/uL (140-400) Neutrophils (%) (Auto) 65 % (31-73) Lymphocytes (%) (Auto) 27 % (24-48) Monocytes (%) (Auto) 7 % (0-9) Eosinophils (%) (Auto) 1 % (0-3) Basophils (%) (Auto) 1 % (0-3) Neutrophils # (Auto) 5.4 x10^3uL (1.8-7.7) Lymphocytes # (Auto) 2.2 x10^3/uL (1.0-4.8) Monocytes # (Auto) 0.6 x10^3/uL (0.0-1.1) Eosinophils # (Auto) 0.1 x10^3/uL (0.0-0.7) Basophils # (Auto) 0.1 x10^3/uL (0.0-0.2) Sodium Level 138 mmol/L (136-145) Potassium Level 4.0 mmol/L (3.5-5.1) Chloride Level 100 mmol/L (98-107) Carbon Dioxide Level 28 mmol/L (21-32) Anion Gap 10 (6-14) Blood Urea Nitrogen 12 mg/dL (7-20) Creatinine 0.7 mg/dL (0.6-1.0) Estimated GFR (Cockcroft-Gault) 79.5 Glucose Level 94 mg/dL (70-99) Calcium Level 9.2 mg/dL (8.5-10.1) Triglycerides Level 135 mg/dL (0-150) Cholesterol Level 292 mg/dL (0-200) LDL Cholesterol, Calculated 199 mg/dL (0-100) VLDL Cholesterol, Calculated 27 mg/dL (0-40) Non-HDL Cholesterol Calculated 226 mg/dL (0-129) HDL Cholesterol 66 mg/dL (40-60) Cholesterol/HDL Ratio 4.4 Laboratory Tests Test 10/26/18 06:45 White Blood Count 8.3 x10^3/uL (4.0-11.0) Red Blood Count 4.72 x10^6/uL (3.50-5.40) Hemoglobin 14.1 g/dL (12.0-15.5) Hematocrit 42.2 % (36.0-47.0) Mean Corpuscular Volume 90 fL (79-100) Mean Corpuscular Hemoglobin 30 pg (25-35) Mean Corpuscular Hemoglobin Concent 33 g/dL (31-37) Red Cell Distribution Width 13.9 % (11.5-14.5) Platelet Count 346 x10^3/uL (140-400) Neutrophils (%) (Auto) 65 % (31-73) Lymphocytes (%) (Auto) 27 % (24-48) Monocytes (%) (Auto) 7 % (0-9) Eosinophils (%) (Auto) 1 % (0-3) Basophils (%) (Auto) 1 % (0-3) Neutrophils # (Auto) 5.4 x10^3uL (1.8-7.7) Lymphocytes # (Auto) 2.2 x10^3/uL (1.0-4.8) Monocytes # (Auto) 0.6 x10^3/uL (0.0-1.1) Eosinophils # (Auto) 0.1 x10^3/uL (0.0-0.7) Basophils # (Auto) 0.1 x10^3/uL (0.0-0.2) Sodium Level 138 mmol/L (136-145) Potassium Level 4.0 mmol/L (3.5-5.1) Chloride Level 100 mmol/L (98-107) Carbon Dioxide Level 28 mmol/L (21-32) Anion Gap 10 (6-14) Blood Urea Nitrogen 12 mg/dL (7-20) Creatinine 0.7 mg/dL (0.6-1.0) Estimated GFR (Cockcroft-Gault) 79.5 Glucose Level 94 mg/dL (70-99) Calcium Level 9.2 mg/dL (8.5-10.1) Triglycerides Level 135 mg/dL (0-150) Cholesterol Level 292 mg/dL (0-200) LDL Cholesterol, Calculated 199 mg/dL (0-100) VLDL Cholesterol, Calculated 27 mg/dL (0-40) Non-HDL Cholesterol Calculated 226 mg/dL (0-129) HDL Cholesterol 66 mg/dL (40-60) Cholesterol/HDL Ratio 4.4 Medications Current Medications Nitroglycerin (Nitro-Bid Oint) 1 inch 1X ONCE TP ; Start 10/25/18 at 01:00; Stop 10/25/18 at 01:07; Status DC Nitroglycerin (Nitro-Bid Oint) 0.5 inch 1X ONCE TP Last administered on at 01:21; Start 10/25/18 at 01:30; Stop 10/25/18 at 01:31; Status DC Ondansetron HCl (Zofran) 4 mg PRN Q8HRS PRN IV NAUSEA/VOMITING 1ST CHOICE; Start 10/25/18 at 01:45; Stop 10/26/18 at 01:44; Status DC Fentanyl Citrate (Fentanyl 2ml Vial) 25 mcg PRN Q2HRS PRN IV SEVERE PAIN; Start 10/25/18 at 01:45 Bisacodyl (Dulcolax Tab) 10 mg PRN BID PRN PO CONSTIPATION; Start 10/25/18 at 08 :30 Fluoxetine HCl (PROzac) 10 mg DAILY PO Last administered on 10/26/18 11:07; Start 10/25/18 at 09:00 Lorazepam (Ativan) 0.5 mg PRN Q8HRS PRN PO ANXIETY / AGITATION; Start 10/25/18 at 08:30 Non-Formulary Medication (Budesonide/ Formoterol Fumarate (Symbicort 160-4.5 Mcg Inhaler)) 10.2 gm DAILY IH ; Start 10/25/18 at 09:00; Status UNV Pantoprazole Sodium (Protonix) 40 mg DAILYAC PO Last administered on 10/26/18 11:08; Start 10/25/18 at 09:00 Budesonide (Pulmicort) 0.5 mg RTBID NEB Last administered on 10/26/18at 07:28; Start 10/25/18 at 09:00 Albuterol Sulfate (Ventolin Neb Soln) 2.5 mg RTQID NEB ; Start 10/25/18 at 09:00 ; Stop 10/25/18 at 09:00; Status DC Albuterol Sulfate (Ventolin Neb Soln) 2.5 mg RTBID NEB Last administered on 10/26 07:28; Start 10/25/18 at 09:00 Docusate Sodium (Colace) 200 mg DAILY PO Last administered on 10/26/18 11:07; Start 10/25/18 at 09:00 Acetaminophen/ Hydrocodone Bitart (Lortab 5/325) 1 tab PRN Q4HRS PRN PO MODERATE-SEVERE PAIN Last administered on 10/26/18 11:13; Start 10/25/18 at 09:30 Acetaminophen (Tylenol) 650 mg PRN Q6HRS PRN PO MILD PAIN Last administered on 10/25/18at 16:19; Start 10/25/18 at 16:30 Regadenoson (Lexiscan) 0.4 mg 1X ONCE IV Last administered on 10/26/18at 09:15; Start 10/26/18 at 09:15; Stop 10/26/18 at 09:16; Status DC Active Scripts Active Hydrocodone-Apap 5-325 (Hydrocodone Bit/Acetaminophen) 1 Each Tablet 1-2 Tab PO Q4-6HRS Reported Lorazepam 0.5 Mg Tablet 0.5 Mg PO PRN Q8HRS PRN Nexium Capsule (Esomeprazole Magnesium) 20 Mg Capsule.dr 20 Mg PO DAILYAC Dulcolax (Bisacodyl) 5 Mg Tablet.dr 2 Tab PO BID PRN Prozac (Fluoxetine Hcl) 10 Mg Capsule 10 Mg PO DAILY Symbicort 160-4.5 Mcg Inhaler (Budesonide/Formoterol Fumarate) 10.2 Gm Hfa.aer.ad 10.2 Gm IH DAILY Vitals/I & O Vital Sign - Last 24 Hours 10/25/18 10/25/18 10/25/18 10/25/18 12:30 15:00 19:35 20:08 Temp 98.1 97.5 98.1 97.5 Pulse 69 71 Resp 18 16 18 B/P (MAP) 135/74 (94) 134/70 (91) Pulse Ox 97 95 97 O2 Delivery Room Air Room Air Room Air Room Air 10/25/18 10/25/18 10/26/18 10/26/18 20:11 23:00 03:25 07:00 Temp 97.8 98.2 98.0 97.8 98.2 98.0 Pulse 71 65 65 Resp 18 18 18 B/P (MAP) 140/78 (98) 124/69 (87) 160/72 (101) Pulse Ox 95 96 97 97 O2 Delivery Room Air Room Air Room Air Room Air 10/26/18 10/26/18 10/26/18 07:29 08:13 11:13 Resp 20 Pulse Ox 96 98 O2 Delivery Room Air Room Air Room Air Intake and Output 10/25/18 10/25/18 10/26/18 14:59 22:59 06:59 Intake Total 240 ml 400 ml Balance 240 ml 400 ml CASTLE,NIAL K III DO Oct 26, 2018 12:21
--- NOTE | 2018-10-26 12:29 | RAD ---
MR#: [id number] Date of Study: 10/26/2018 Ordering Physician: JUDY SIMMONS, Referring Physician: SHARON KELLER Tech: GABY Watt ARRT (R) (N) APPROVED REPORT Test Type: Pharmacological Stress Nurse/Tech: Ally HERNANDEZ Test Indications: CP Cardiac History: See EMR Medications: See EMR Medical History: COPD, See EMR Resting ECG: SR Resting Heart Rate: 75 bpm Resting Blood Pressure: 167/80mmHg Pretest Chest Pain: No chest pain Nurse/Tech Notes Lungs CTA. Heart tones regular. Consent: The procedure was explained to the patient in lay terms. Informed consent was witnessed. Slim eout was entered into [email or web address]. History and Stress Test performed by RT Jazmin (R) (N) Pharm. Details Pharmacologic stress testing was performed using 0.4mg per 5ml of regadenoson given intravenously ove r 7-10 seconds. Stress Symptoms Dyspnea, Flushing POST EXERCISE Reason for Termination: Infusion complete Max HR: 101 bpm Max Blood Pressure: 128/54mmHg Chest Pain: No. Arrhythmia: Yes. Frequent PACs ST Change: No. INTERPRETATION Stress EKG Conclusion: Baseline EKG showed sinus rhythm. No ischemic changes at peak stress. No arr hythmias. Imaging Protocol IMAGE PROTOCOL: Rest Tc-99m/stress Tc-99m 1 day Rest: Stress: Viability: Radiopharm.Tc99m FvccomkawIo14p Sestamibi Yacm56gNb 33mCi Img Date 10/26/2018 10/26/2018 Inj-Img [id number]. 60min. Rest Admin Site:IV - Left AntecubitalAdministrator:GABY Watt ARRT (R)(N) Stress Admin Site: IV - Left AntecubitalAdministrator: RT Costa Wu)(N) STRESS DATA End Diast. Vol.38.0mlLVEDV index BSA22.0ml End Syst. Vol.5.0mlLVESV index BSA3.0ml Myocardial Mass83.0gEject. Arwyfvoo04.0% Stress Scores Regional WT1.00Summed WT5.00 Regional WM0.00Summed WM0.00 Study quality was good. Left Ventricular size was Normal at Rest and Stress. Lung uptake was . Left Ventricular ejection fraction is 78%. The rest and stress images show normal perfusion, normal contraction and thickening. LV Perf. Quant 17 Seg. SSS0.00 17 Seg. SRS0.00 17 Seg. SDS0.00 Stress Defect Extent (% LAD)0.00Rest Defect Extent (% LAD)0.00Rev. Defect Extent (% LAD)0.00 Stress Defect Extent (% LCX) 0.00Rest Defect Extent (% LCX)0.00Rev. Defect Extent (% LCX)0.00 Stress Defect Extent (% RCA)0.00Rest Defect Extent (% RCA)0.00Rev. Defect Extent (% RCA)0.00 Stress Defect Extent (% GABRIELLE)0.00Rest Defect Extent (% GABRIELLE)0.00Rev. Defect Extent (% GABRIELLE)0.00 Conclusion 1. Regadenoson cardioisotope stress test did not show any evidence of ischemia or infarct. 2. Normal left ventricular systolic function with ejection fraction calculated at 78%. 3. Low risk for cardiac events. Signed by : Sher Crowe, Electronically Approved : 10/26/2018 12:28:42
[2018-10-26] MEDS ORDERED: ATOR40TA59 PO (13:11)
--- NOTE | 2018-10-26 14:14 | DS ---
DATE OF DISCHARGE: 10/26/2018 ADMISSION DIAGNOSIS: Chest pain. DISCHARGE DIAGNOSES: Resolving chest pain, history of COPD, AFib, hypertension, hysterectomy, and hyperlipidemia. CONSULTS: Cardiology. PROCEDURES: MPI, which results are pending, but I was there for the first half, it appears as negative. Awaiting for the final results/ HOSPITAL COURSE: The patient is a pleasant elderly female who presented with chest pain. She was admitted. We did serial enzymes, serial EKGs. We consulted Cardiology. She does have a known history of AFib and hypertension. This morning she was getting a stress test when I saw her, the first results looked great. We are awaiting the official report, but if it is all negative, we plan to discharge this afternoon if okay with Cardiology. DISPOSITION: Home. ACTIVITY: As tolerated. MEDICATIONS: Please see the MRAD. TOTAL TIME: 32 minutes. RIGO MONAHAN DO DR: SASCHA/romana JOB#: [id number] / [id number]
--- NOTE | 2018-10-26 17:02 | PDOC ---
PROGRESS NOTES Subjective Subjective Patient seen and examined Objective Objective Vital Signs Date Time Temp Pulse Resp B/P (MAP) Pulse Ox O2 Delivery O2 Flow Rate FiO2 10/26/18 12:13 20 98 Room Air 10/26/18 07:00 98.0 65 160/72 (101) 98.0 Intake and Output 10/26/18 07:00 Intake Total 640 ml Balance 640 ml Intake Oral 640 ml # Voids 2 Physical Exam Abdomen: Normal bowel sounds Heart: Regular rate General: No acute distress Lungs: Clear to auscultation Assessment Assessment Problems Medical Problems: (1) Chest pain Status: Acute 1. Chest pain. Patient's pain has resolved. She had no acute ischemic EKG changes. Troponins have been normal 2. MPI testing today shows no evidence of reversible ischemia or infarct. Ejection fraction is normal. Patient may be discharged from a cardiac viewpoint. 2. Gastroesophageal reflux disease. Continue baseline medications. 3. History of atrial fibrillation. Continue present medications. 4. Hypertension. Controlled. We'll continue to monitor. Comment Review of Relevant I have reviewed the following items jocelyn (where applicable) has been applied. Labs Laboratory Tests Test 10/25/18 00:35 10/25/18 02:00 10/25/18 04:15 10/25/18 07:47 White Blood Count 8.6 x10^3/uL (4.0-11.0) Red Blood Count 4.60 x10^6/uL (3.50-5.40) Hemoglobin 13.6 g/dL (12.0-15.5) Hematocrit 41.0 % (36.0-47.0) Mean Corpuscular Volume 89 fL (79-100) Mean Corpuscular Hemoglobin 30 pg (25-35) Mean Corpuscular Hemoglobin Concent 33 g/dL (31-37) Red Cell Distribution Width 13.8 % (11.5-14.5) Platelet Count 313 x10^3/uL (140-400) Neutrophils (%) (Auto) 67 % (31-73) Lymphocytes (%) (Auto) 25 % (24-48) Monocytes (%) (Auto) 7 % (0-9) Eosinophils (%) (Auto) 1 % (0-3) Basophils (%) (Auto) 1 % (0-3) Neutrophils # (Auto) 5.8 x10^3uL (1.8-7.7) Lymphocytes # (Auto) 2.1 x10^3/uL (1.0-4.8) Monocytes # (Auto) 0.6 x10^3/uL (0.0-1.1) Eosinophils # (Auto) 0.0 x10^3/uL (0.0-0.7) Basophils # (Auto) 0.1 x10^3/uL (0.0-0.2) Prothrombin Time 12.3 SEC (11.7-14.0) Prothromb Time International Ratio 0.9 (0.8-1.1) Sodium Level 138 mmol/L (136-145) Potassium Level 3.9 mmol/L (3.5-5.1) Chloride Level 100 mmol/L (98-107) Carbon Dioxide Level 29 mmol/L (21-32) Anion Gap 9 (6-14) Blood Urea Nitrogen 17 mg/dL (7-20) Creatinine 0.7 mg/dL (0.6-1.0) Estimated GFR (Cockcroft-Gault) 79.5 BUN/Creatinine Ratio 24 (6-20) Glucose Level 115 mg/dL (70-99) Calcium Level 9.3 mg/dL (8.5-10.1) Magnesium Level 2.4 mg/dL (1.8-2.4) Total Bilirubin 0.2 mg/dL (0.2-1.0) Aspartate Amino Transf (AST/SGOT) 10 U/L (15-37) Alanine Aminotransferase (ALT/SGPT) 12 U/L (14-59) Alkaline Phosphatase 73 U/L (46-116) Creatine Kinase 57 U/L (26-192) Creatine Kinase MB (Mass) 1.0 ng/mL (0.0-3.6) Creatine Kinase MB Relative Index % (0-4) Troponin I Quantitative < 0.017 ng/mL (0.000-0.055) < 0.017 ng/mL (0.000-0.055) < 0.017 ng/mL (0.000-0.055) YY-[id number]-G-Type Natriuretic Peptide 301 pg/mL (0-449) Total Protein 8.3 g/dL (6.4-8.2) Albumin 4.0 g/dL (3.4-5.0) Albumin/Globulin Ratio 0.9 (1.0-1.7) Lipase 171 U/L (73-393) Urine Collection Type Unknown Urine Color Yellow Urine Clarity Clear Urine pH 7.0 Urine Specific [place] 1.010 Urine Protein Negative mg/dL (NEG-TRACE) Urine Glucose (UA) Negative mg/dL (NEG) Urine Ketones (Stick) Negative mg/dL (NEG) Urine Blood Small (NEG) Urine Nitrite Negative (NEG) Urine Bilirubin Negative (NEG) Urine Urobilinogen Dipstick 0.2 mg/dL (0.2 mg/dL) Urine Leukocyte Esterase Negative (NEG) Urine RBC 3-5 /HPF (0-2) Urine WBC 1-4 /HPF (0-4) Urine Squamous Epithelial Cells Few /LPF Urine Bacteria 0 /HPF (0-FEW) Urine Mucus Slight /LPF Test 10/26/18 06:45 White Blood Count 8.3 x10^3/uL (4.0-11.0) Red Blood Count 4.72 x10^6/uL (3.50-5.40) Hemoglobin 14.1 g/dL (12.0-15.5) Hematocrit 42.2 % (36.0-47.0) Mean Corpuscular Volume 90 fL (79-100) Mean Corpuscular Hemoglobin 30 pg (25-35) Mean Corpuscular Hemoglobin Concent 33 g/dL (31-37) Red Cell Distribution Width 13.9 % (11.5-14.5) Platelet Count 346 x10^3/uL (140-400) Neutrophils (%) (Auto) 65 % (31-73) Lymphocytes (%) (Auto) 27 % (24-48) Monocytes (%) (Auto) 7 % (0-9) Eosinophils (%) (Auto) 1 % (0-3) Basophils (%) (Auto) 1 % (0-3) Neutrophils # (Auto) 5.4 x10^3uL (1.8-7.7) Lymphocytes # (Auto) 2.2 x10^3/uL (1.0-4.8) Monocytes # (Auto) 0.6 x10^3/uL (0.0-1.1) Eosinophils # (Auto) 0.1 x10^3/uL (0.0-0.7) Basophils # (Auto) 0.1 x10^3/uL (0.0-0.2) Sodium Level 138 mmol/L (136-145) Potassium Level 4.0 mmol/L (3.5-5.1) Chloride Level 100 mmol/L (98-107) Carbon Dioxide Level 28 mmol/L (21-32) Anion Gap 10 (6-14) Blood Urea Nitrogen 12 mg/dL (7-20) Creatinine 0.7 mg/dL (0.6-1.0) Estimated GFR (Cockcroft-Gault) 79.5 Glucose Level 94 mg/dL (70-99) Calcium Level 9.2 mg/dL (8.5-10.1) Triglycerides Level 135 mg/dL (0-150) Cholesterol Level 292 mg/dL (0-200) LDL Cholesterol, Calculated 199 mg/dL (0-100) VLDL Cholesterol, Calculated 27 mg/dL (0-40) Non-HDL Cholesterol Calculated 226 mg/dL (0-129) HDL Cholesterol 66 mg/dL (40-60) Cholesterol/HDL Ratio 4.4 Laboratory Tests Test 10/26/18 06:45 White Blood Count 8.3 x10^3/uL (4.0-11.0) Red Blood Count 4.72 x10^6/uL (3.50-5.40) Hemoglobin 14.1 g/dL (12.0-15.5) Hematocrit 42.2 % (36.0-47.0) Mean Corpuscular Volume 90 fL (79-100) Mean Corpuscular Hemoglobin 30 pg (25-35) Mean Corpuscular Hemoglobin Concent 33 g/dL (31-37) Red Cell Distribution Width 13.9 % (11.5-14.5) Platelet Count 346 x10^3/uL (140-400) Neutrophils (%) (Auto) 65 % (31-73) Lymphocytes (%) (Auto) 27 % (24-48) Monocytes (%) (Auto) 7 % (0-9) Eosinophils (%) (Auto) 1 % (0-3) Basophils (%) (Auto) 1 % (0-3) Neutrophils # (Auto) 5.4 x10^3uL (1.8-7.7) Lymphocytes # (Auto) 2.2 x10^3/uL (1.0-4.8) Monocytes # (Auto) 0.6 x10^3/uL (0.0-1.1) Eosinophils # (Auto) 0.1 x10^3/uL (0.0-0.7) Basophils # (Auto) 0.1 x10^3/uL (0.0-0.2) Sodium Level 138 mmol/L (136-145) Potassium Level 4.0 mmol/L (3.5-5.1) Chloride Level 100 mmol/L (98-107) Carbon Dioxide Level 28 mmol/L (21-32) Anion Gap 10 (6-14) Blood Urea Nitrogen 12 mg/dL (7-20) Creatinine 0.7 mg/dL (0.6-1.0) Estimated GFR (Cockcroft-Gault) 79.5 Glucose Level 94 mg/dL (70-99) Calcium Level 9.2 mg/dL (8.5-10.1) Triglycerides Level 135 mg/dL (0-150) Cholesterol Level 292 mg/dL (0-200) LDL Cholesterol, Calculated 199 mg/dL (0-100) VLDL Cholesterol, Calculated 27 mg/dL (0-40) Non-HDL Cholesterol Calculated 226 mg/dL (0-129) HDL Cholesterol 66 mg/dL (40-60) Cholesterol/HDL Ratio 4.4 Medications Current Medications Nitroglycerin (Nitro-Bid Oint) 1 inch 1X ONCE TP ; Start 10/25/18 at 01:00; Stop 10/25/18 at 01:07; Status DC Nitroglycerin (Nitro-Bid Oint) 0.5 inch 1X ONCE TP Last administered on at 01:21; Start 10/25/18 at 01:30; Stop 10/25/18 at 01:31; Status DC Ondansetron HCl (Zofran) 4 mg PRN Q8HRS PRN IV NAUSEA/VOMITING 1ST CHOICE; Start 10/25/18 at 01:45; Stop 10/26/18 at 01:44; Status DC Fentanyl Citrate (Fentanyl 2ml Vial) 25 mcg PRN Q2HRS PRN IV SEVERE PAIN; Start 10/25/18 at 01:45; Stop 10/26/18 at 14:48; Status DC Bisacodyl (Dulcolax Tab) 10 mg PRN BID PRN PO CONSTIPATION; Start 10/25/18 at 08 :30; Stop 10/26/18 at 14:48; Status DC Fluoxetine HCl (PROzac) 10 mg DAILY PO Last administered on 10/26/18 11:07; Start 10/25/18 at 09:00; Stop 10/26/18 at 14:48; Status DC Lorazepam (Ativan) 0.5 mg PRN Q8HRS PRN PO ANXIETY / AGITATION; Start 10/25/18 at 08:30; Stop 10/26/18 at 14:48; Status DC Non-Formulary Medication (Budesonide/ Formoterol Fumarate (Symbicort 160-4.5 Mcg Inhaler)) 10.2 gm DAILY IH ; Start 10/25/18 at 09:00; Status UNV Pantoprazole Sodium (Protonix) 40 mg DAILYAC PO Last administered on 10/26/18 11:08; Start 10/25/18 at 09:00; Stop 10/26/18 at 14:48; Status DC Budesonide (Pulmicort) 0.5 mg RTBID NEB Last administered on 10/26/18 07:28; Start 10/25/18 at 09:00; Stop 10/26/18 at 14:48; Status DC Albuterol Sulfate (Ventolin Neb Soln) 2.5 mg RTQID NEB ; Start 10/25/18 at 09:00 ; Stop 10/25/18 at 09:00; Status DC Albuterol Sulfate (Ventolin Neb Soln) 2.5 mg RTBID NEB Last administered on 10/26 07:28; Start 10/25/18 at 09:00; Stop 10/26/18 at 14:48; Status DC Docusate Sodium (Colace) 200 mg DAILY PO Last administered on 10/26/18 11:07; Start 10/25/18 at 09:00; Stop 10/26/18 at 14:48; Status DC Acetaminophen/ Hydrocodone Bitart (Lortab 5/325) 1 tab PRN Q4HRS PRN PO MODERATE-SEVERE PAIN Last administered on 10/26/18 11:13; Start 10/25/18 at 09:30 ; Stop 10/26/18 at 14:48; Status DC Acetaminophen (Tylenol) 650 mg PRN Q6HRS PRN PO MILD PAIN Last administered on 3/3/19at 16:19; Start 10/25/18 at 16:30; Stop 10/26/18 at 14:48; Status DC Regadenoson (Lexiscan) 0.4 mg 1X ONCE IV Last administered on 10/26/18at 09:15; Start 10/26/18 at 09:15; Stop 10/26/18 at 09:16; Status DC Atorvastatin Calcium (Lipitor) 40 mg QHS PO ; Start 10/26/18 at 21:00; Stop at 21:00; Status DC Active Scripts Active Hydrocodone-Apap 5-325 (Hydrocodone Bit/Acetaminophen) 1 Each Tablet 1-2 Tab PO Q4-6HRS Reported Atorvastatin Calcium 40 Mg Tablet 40 Mg PO HS Lorazepam 0.5 Mg Tablet 0.5 Mg PO PRN Q8HRS PRN Nexium Capsule (Esomeprazole Magnesium) 20 Mg Capsule.dr 20 Mg PO DAILYAC Dulcolax (Bisacodyl) 5 Mg Tablet.dr 2 Tab PO BID PRN Prozac (Fluoxetine Hcl) 10 Mg Capsule 10 Mg PO DAILY Symbicort 160-4.5 Mcg Inhaler (Budesonide/Formoterol Fumarate) 10.2 Gm Hfa.aer.ad 10.2 Gm IH DAILY Vitals/I & O Vital Sign - Last 24 Hours 10/25/18 10/25/18 10/25/18 10/25/18 19:35 20:08 20:11 23:00 Temp 97.5 97.8 97.5 97.8 Pulse 71 71 Resp 18 18 B/P (MAP) 134/70 (91) 140/78 (98) Pulse Ox 97 95 96 O2 Delivery Room Air Room Air Room Air Room Air 10/26/18 10/26/18 10/26/18 10/26/18 03:25 07:00 07:29 08:13 Temp 98.2 98.0 98.2 98.0 Pulse 65 65 Resp 18 18 B/P (MAP) 124/69 (87) 160/72 (101) Pulse Ox 97 97 96 O2 Delivery Room Air Room Air Room Air Room Air 10/26/18 10/26/18 11:13 12:13 Resp 20 20 Pulse Ox 98 98 O2 Delivery Room Air Room Air Intake and Output 10/25/18 10/25/18 10/26/18 15:00 23:00 07:00 Intake Total 240 ml 400 ml Balance 240 ml 400 ml JUDY SIMMONS MD Oct 26, 2018 17:02
[2018-10-26] MEDS ORDERED: ATORVASTATIN CALCIUM 40 MG TABLET. PO SCH (21:00)
== END 2018-10-26 14:40 | disposition home or self-care (01) | DRG 392 ==
LOC: ER 00:23 → 2 NORTH 02:02
PROVIDERS: ADMIT Internal Medicine; ATTEND Internal Medicine
DX: K21.9 Gastro-esophageal reflux disease without esophagitis (principal); R07.89 Other chest pain; E78.00 Pure hypercholesterolemia, unspecified; E78.5 Hyperlipidemia, unspecified; F41.9 Anxiety disorder, unspecified; I10 Essential (primary) hypertension; I48.91 Unspecified atrial fibrillation; J44.9 Chronic obstructive pulmonary disease, unspecified; Z96.642 Presence of left artificial hip joint; Z96.651 Presence of right artificial knee joint; F32.9 Major depressive disorder, single episode, unspecified; Z82.49 Family history of ischemic heart disease and other diseases of the circulatory system; Z90.710 Acquired absence of both cervix and uterus; Z88.8 Allergy status to other drugs, medicaments and biological substances
CPT/HCPCS: 36415; 71046; 78452; 80048; 80053; 80061; 81001; 82553; 83690; 83735; 83880; 84484; 85025; 85610; 93005; 93017; 94640; 94760; 96374; A9500; J2785; J7613; J7626; 99285-25

== ENCOUNTER → 2021-12-17 | Outpatient (CLI) | payer MEDICARE ==
[~2021-12-17] MED LIST changes: +ATOR40TA59 PO; -DILT120C85 PO; +DILT120C99 PO; +ESOM20CA PO; +LORA0.5T PO; +MULT-445 PO; -MULT1TAB52 PO
--- NOTE | 2021-12-17 12:30 | KCIC ---
MRI BRAIN WO Date: 12/17/2021 11:00 AM Indication: DEMENTIA/COGNITIVE DECLINE. Woresening memory problems, train of thought processes. Comparison: 06/26/2018. Technique: Multiplanar multisequence MRI of the brain was performed without intravenous contrast usin g the standard protocol. Findings: No acute infarct. No acute or chronic hemorrhage. The ventricles are normal in size and configuration without hydrocephalus. Extensive FLAIR hyperintense signal in the subcortical and periventricular de ep white matter, a nonspecific finding, most commonly seen with chronic small vessel ischemic disease . Mild generalized cerebral volume loss. Bilateral basal ganglia chronic lacunar infarcts. The scalp and calvarium are normal. The pituitary and sella are normal. No Chiari malformation. Mild incompletely characterized degenerative spondylosis of the visualized upper cervical spine. The visualized orbits and globes are normal. The visualized paranasal sinuses are clear. The mastoid air cells are clear. Normal flow voids within the vertebral, basilar, and internal carotid arteries indicating patency. IMPRESSION: 1. No acute infarct, acute hemorrhage, mass, or hydrocephalus. 2. Bilateral basal ganglia chronic lacunar infarcts. 3. Extensive chronic small vessel ischemic disease and mild generalized cerebral volume loss. Electronically signed by: Jimmy Monet MD (12/17/2021 12:27 PM) [id number]
== END ==
LOC: KCIC MRI 10:35
PROVIDERS: ATTEND Family Medicine
DX: I63.81 Other cerebral infarction due to occlusion or stenosis of small artery (principal); I67.82 Cerebral ischemia; G93.89 Other specified disorders of brain; F03.90 Unspecified dementia, unspecified severity, without behavioral disturbance, psychotic disturbance, mood disturbance, and anxiety; M47.812 Spondylosis without myelopathy or radiculopathy, cervical region
CPT/HCPCS: 70551